=== PATIENT | female | born 1945 | race African-American/Black ===

== ENCOUNTER 2018-12-27 04:45 | Inpatient (IN) | payer BC, MEDICARE ==
[~2018-12-27] VITALS: Ht 163.8 cm; Wt 99.4 kg
[2018-12-27] VITALS (7 sets, daily range): BP systolic 114–166; BP diastolic 58–88
[2018-12-27 05:28] LABS: BASO % 1 % (0-3); EOS # 0.2 x10^3/uL (0.0-0.7); EOS % 3 % (0-3); HEMATOCRIT 39.7 % (36.0-47.0); HEMOGLOBIN 13.4 g/dL (12.0-15.5); LYMPH # 2.2 x10^3/uL (1.0-4.8); LYMPH % 44 % (24-48); MEAN CORPUSCULAR HEMOGLOBIN 30 pg (25-35); MEAN CORPUSCULAR HGB CONC 34 g/dL (31-37); MEAN CORPUSCULAR VOLUME 88 fL (79-100); MONO # 0.4 x10^3/uL (0.0-1.1); MONO % 8 % (0-9); NEUT # 2.2 x10^3/uL (1.8-7.7); NEUT % 44 % (31-73); PLATELET COUNT 227 x10^3/uL (140-400); RED BLOOD COUNT 4.51 x10^6/uL (3.50-5.40); RED CELL DISTRIBUTION WIDTH 13.9 % (11.5-14.5); WHITE BLOOD COUNT 5.1 x10^3/uL (4.0-11.0)
[2018-12-27] MEDS ORDERED: DEXAMETHASONE SOD PHOS 4 MG/ML VIAL IV ONE (05:30)
[2018-12-27 05:45] LABS: CALCIUM 8.7 mg/dL (8.5-10.1); CREATININE 1.1 mg/dL (0.6-1.0); GFR 59.2; POTASSIUM 3.8 mmol/L (3.5-5.1)
--- NOTE | 2018-12-27 05:46 | PHYS DOC ---
Past Medical History Past Medical History: High Cholesterol, Hypertension (DOMO CAMPOS MD) Past Surgical History: No Surgical History (DOMO CAMPOS MD) Alcohol Use: Occasionally Drug Use: None (DOMO CAMPOS MD) Adult General Chief Complaint Chief Complaint: LOWER BACK PAIN OR INJURY HPI HPI 73-year-old female presents to the emergency Department with complaints of back pain, bilateral lower extremity weakness, urinary incontinence. Patient states around 10 AM today she started having some back pain, crampy, muscle spasm. She was seen at [facility] for initial complaints, found to have urinary tract infection. Patient was provided with Macrobid, Tizanidine secondary to the muscle spasm. She states throughout the day pain has progressively gotten worse with radiation down her bilateral lower extremities. She describes numbness and tingling to her lower extremities. She states around 2 AM she noticed that she was incontinent of urine. States her last normal bowel movement was this morning. On exam she describes perineal numbness, states she is unable to feel in that area. Given her symptoms she presents to the emergency department for further evaluation. Patient denies any chest pain, shortness of breath, nausea or vomiting. (DOMO CAMPOS MD) Review of Systems Review of Systems Constitutional: Denies fever or chills [] Eyes: Denies change in visual acuity, redness, or eye pain [] Respiratory: Denies cough or shortness of breath [] Cardiovascular: No additional information not addressed in HPI [] GI: Denies abdominal pain, nausea, vomiting, bloody stools or diarrhea [] : urinary incontinence Musculoskeletal: back pain with radiation down her bilateral lower ext Integument: Denies rash or skin lesions [] Neurologic: weakness to bilateral lower ext, numbness to perineum All other systems were reviewed and found to be within normal limits, except as documented in this note. (DOMO CAMPOS MD) Current Medications Current Medications Current Medications Medications (Trade) Dose Ordered Sig/[place] Start Time Stop Time Status Last Admin Dose Admin Dexamethasone Sodium Phosphate (Decadron) 4 mg 1X ONCE 12/27/18 05:30 12/27/18 05:31 DC 12/27/18 05:42 4 MG Hydromorphone HCl (Dilaudid) 1 mg 1X ONCE 12/27/18 07:30 12/27/18 07:31 DC 12/27/18 07:09 1 MG (ASHLEY SCHMIDT MD) Allergies Allergies Allergies Coded Allergies Type Severity Reaction Last Updated Verified latex Allergy Intermediate 10/31/14 Yes (ASHLEY SCHMIDT MD) Physical Exam Physical Exam Constitutional: Well developed, well nourished, mild distress 2/2 pain HENT: Normocephalic, atraumatic, bilateral external ears normal, oropharynx moist, no oral exudates, nose normal. [] Eyes: PERRLA, EOMI, conjunctiva normal, no discharge. [] Cardiovascular:Heart rate regular rhythm, no murmur [] Lungs & Thorax: Bilateral breath sounds clear to auscultation [] Abdomen: Bowel sounds normal, soft, no tenderness, no masses, no pulsatile masses. [] Skin: Warm, dry, no erythema, no rash. [] Back: lumbosacral spine tenderness midline Extremities: decreased sensation to bilateral lower ext, weakness appreciated 3/5 bilateral, numbness/tingling from buttock down lower ext : decreased rectal tone on exam, minimal resistance if any, perineum exam reveals numbness Neurologic: Alert and oriented X 3, see above[] Psychologic: Affect normal, judgement normal, mood normal. [] (DOMO CAMPOS MD) Current Patient Data Vital Signs Vital Signs Date Time Temp Pulse Resp B/P (MAP) Pulse Ox O2 Delivery O2 Flow Rate FiO2 12/27/18 08:15 79 18 147/82 (103) 99 Room Air 12/27/18 05:23 98.1 98.1 (ASHLEY SCHMIDT MD) Lab Values Laboratory Tests Test 12/27/18 05:20 12/27/18 06:00 White Blood Count 5.1 x10^3/uL (4.0-11.0) Red Blood Count 4.51 x10^6/uL (3.50-5.40) Hemoglobin 13.4 g/dL (12.0-15.5) Hematocrit 39.7 % (36.0-47.0) Mean Corpuscular Volume 88 fL (79-100) Mean Corpuscular Hemoglobin 30 pg (25-35) Mean Corpuscular Hemoglobin Concent 34 g/dL (31-37) Red Cell Distribution Width 13.9 % (11.5-14.5) Platelet Count 227 x10^3/uL (140-400) Neutrophils (%) (Auto) 44 % (31-73) Lymphocytes (%) (Auto) 44 % (24-48) Monocytes (%) (Auto) 8 % (0-9) Eosinophils (%) (Auto) 3 % (0-3) Basophils (%) (Auto) 1 % (0-3) Neutrophils # (Auto) 2.2 x10^3/uL (1.8-7.7) Lymphocytes # (Auto) 2.2 x10^3/uL (1.0-4.8) Monocytes # (Auto) 0.4 x10^3/uL (0.0-1.1) Eosinophils # (Auto) 0.2 x10^3/uL (0.0-0.7) Basophils # (Auto) 0.0 x10^3/uL (0.0-0.2) Sodium Level 142 mmol/L (136-145) Potassium Level 3.8 mmol/L (3.5-5.1) Chloride Level 106 mmol/L (98-107) Carbon Dioxide Level 26 mmol/L (21-32) Anion Gap 10 (6-14) Blood Urea Nitrogen 14 mg/dL (7-20) Creatinine 1.1 mg/dL (0.6-1.0) H Estimated GFR (Cockcroft-Gault) 59.2 BUN/Creatinine Ratio 13 (6-20) Glucose Level 118 mg/dL (70-99) H Calcium Level 8.7 mg/dL (8.5-10.1) Total Bilirubin 0.4 mg/dL (0.2-1.0) Aspartate Amino Transferase (AST) 36 U/L (15-37) Alanine Aminotransferase (ALT) 35 U/L (14-59) Alkaline Phosphatase 80 U/L (46-116) Total Protein 7.4 g/dL (6.4-8.2) Albumin 3.5 g/dL (3.4-5.0) Albumin/Globulin Ratio 0.9 (1.0-1.7) L Urine Collection Type U cath Urine Color Yellow Urine Clarity Clear Urine pH 5.5 Urine Specific [place] 1.010 Urine Protein Negative mg/dL (NEG-TRACE) Urine Glucose (UA) Negative mg/dL (NEG) Urine Ketones (Stick) Negative mg/dL (NEG) Urine Blood Negative (NEG) Urine Nitrite Negative (NEG) Urine Bilirubin Negative (NEG) Urine Urobilinogen Dipstick 0.2 mg/dL (0.2 mg/dL) Urine Leukocyte Esterase Negative (NEG) Urine RBC Occ /HPF (0-2) Urine WBC 0 /HPF (0-4) Urine Squamous Epithelial Cells Few /LPF Urine Renal Epithelial Cells Occ /LPF Urine Bacteria 0 /HPF (0-FEW) Urine Mucus Slight /LPF Laboratory Tests 12/27/18 05:20 Laboratory Tests 12/27/18 05:20 (ASHLEY SCHMIDT MD) Lab Values Laboratory Tests Test 12/27/18 05:20 White Blood Count 5.1 x10^3/uL (4.0-11.0) Red Blood Count 4.51 x10^6/uL (3.50-5.40) Hemoglobin 13.4 g/dL (12.0-15.5) Hematocrit 39.7 % (36.0-47.0) Mean Corpuscular Volume 88 fL (79-100) Mean Corpuscular Hemoglobin 30 pg (25-35) Mean Corpuscular Hemoglobin Concent 34 g/dL (31-37) Red Cell Distribution Width 13.9 % (11.5-14.5) Platelet Count 227 x10^3/uL (140-400) Neutrophils (%) (Auto) 44 % (31-73) Lymphocytes (%) (Auto) 44 % (24-48) Monocytes (%) (Auto) 8 % (0-9) Eosinophils (%) (Auto) 3 % (0-3) Basophils (%) (Auto) 1 % (0-3) Neutrophils # (Auto) 2.2 x10^3/uL (1.8-7.7) Lymphocytes # (Auto) 2.2 x10^3/uL (1.0-4.8) Monocytes # (Auto) 0.4 x10^3/uL (0.0-1.1) Eosinophils # (Auto) 0.2 x10^3/uL (0.0-0.7) Basophils # (Auto) 0.0 x10^3/uL (0.0-0.2) Sodium Level 142 mmol/L (136-145) Potassium Level 3.8 mmol/L (3.5-5.1) Chloride Level 106 mmol/L (98-107) Carbon Dioxide Level 26 mmol/L (21-32) Anion Gap 10 (6-14) Blood Urea Nitrogen 14 mg/dL (7-20) Creatinine 1.1 mg/dL (0.6-1.0) H Estimated GFR (Cockcroft-Gault) 59.2 BUN/Creatinine Ratio 13 (6-20) Glucose Level 118 mg/dL (70-99) H Calcium Level 8.7 mg/dL (8.5-10.1) Total Bilirubin 0.4 mg/dL (0.2-1.0) Aspartate Amino Transferase (AST) 36 U/L (15-37) Alanine Aminotransferase (ALT) 35 U/L (14-59) Alkaline Phosphatase 80 U/L (46-116) Total Protein 7.4 g/dL (6.4-8.2) Albumin 3.5 g/dL (3.4-5.0) Albumin/Globulin Ratio 0.9 (1.0-1.7) L Laboratory Tests 12/27/18 05:20 Laboratory Tests 12/27/18 05:20 (DOMO CAMPOS MD) EKG EKG [] (DOMO CAMPOS MD) Radiology/Procedures Radiology/Procedures [] (DOMO CAMPOS MD) Radiology/Procedures [facility] [address] [place], [place] [id number] IMAGING REPORT Signed PATIENT: KVNG YUNG EACCOUNT: [id number] : 1945 LOCATION: ER AGE: 73 SEX: F EXAM STATUS: REG ER ORD. PHYSICIAN: DOMO CAMPOS MD REASON: concern for cauda equina - decreased rectal tone, perineal numbness- [id number] PROCEDURE: LUMBAR SPINE WO CONTRAST MRI Lumbar Spine without contrast History: Decreased rectal tone, perineal numbness Technique: Multiplanar, multi sequential noncontrast MR imaging was performed of the lumbar spine. Comparison: None Findings: Lumbar vertebral body stature is maintained. There is straightening of the lumbar spine. There is negligible anterior spondylolisthesis L3-4. There is moderate to severe degenerative disc disease at L2-3 and to a somewhat lesser degree at L3-4 and L4-5, minimally L5-S1. There are posterior and anterior annular tears L2-3 through L4-5. There is trace L3-4 endplate edema likely reactive/degenerative in etiology. There is also mild amorphous edema of the right L5 pedicle extending to the facet articular process more likely be reactive/degenerative in etiology. There is T2 hyperintense lesion of the visualized right kidney not fully included, up to about 2.6 cm, statistically more likely a cyst. L1-L2: Neural foramina and spinal canal are adequate. There is mild prominence of posterior epidural fat centrally and mild buckling of the ligamentum flavum. L2-L3: There is prominence of posterior epidural fat centrally and mild facet degenerative change. There is disc osteophyte complex and bulge. There is mild to moderate attenuation of the thecal sac including narrowing the far right lateral recess, more central attenuation of the thecal sac due to epidural lipomatosis posteriorly. There is mild inferior neural foramina compromise by disc osteophyte complex, near undersurface of proximal extraforaminal left L2 nerve root. L3-L4: There is prominence of posterior epidural fat centrally. There is mild buckling of the ligamentum flavum and [id number] facet degenerative change. There is disc osteophyte complex. There is superimposed protrusion eccentric to the left lateral recess about 2 to 3 mm AP. There is overall moderate attenuation of the thecal sac with a greater degree of left lateral recess stenosis, posterior attenuation of the thecal sac by epidural lipomatosis. There is mild to moderate narrowing greater distally of the left neural foramen, shallow protrusion near undersurface exiting left L3 nerve root. Right neural foramen is not significantly narrowed. L4-L5: There is prominence of posterior epidural fat centrally. There is mild facet hypertrophic change and buckling of the ligamentum flavum. There is minimal disc osteophyte complex and bulge. There is fairly severe attenuation of the thecal sac, posterior attenuation of the thecal sac centrally by epidural lipomatosis. There is limited preserved subarachnoid space. There is lateral recess stenosis bilaterally with contact of the descending L5 nerve roots. Neural foramina are not significantly narrowed. L5-S1: Spinal canal is overall adequate. There is mild to moderate right facet degenerative change. Left neural foramen is adequate. There is [id number] narrowing of the right neural foramen. Impression: 1. There is fairly severe attenuation of the thecal sac at L4-5 with limited preserved subarachnoid space, posterior attenuation of the thecal sac more centrally by posterior epidural lipomatosis. There is a lesser degree of moderate spinal stenosis at L3-4, mild attenuation of the thecal sac at L2-3. Posterior epidural lipomatosis also contributes to attenuation of the thecal sac at L2-3 and L3-4. 2. There is multilevel lumbar degenerative disc disease greatest at L2-3 through L4-5, mild spondylosis. 3. There is mild to moderate narrowing of the right L5-S1 and left L3-4 neural foramina, minimal narrowing bilaterally at L2-L3. 4. Not fully evaluated, T2 hyperintense lesion of the right kidney is statistically most likely a cyst. Electronically signed by: Trish Taylor MD (12/27/2018 8:42 AM) [facility] DICTATED and SIGNED BY: TRISH TAYLOR MD DATE: 12/27/18 0842 (ASHLEY SCHMIDT MD) Course & Med Decision Making Course & Med Decision Making Pertinent Labs and Imaging studies reviewed. (See chart for details) []73-year-old female presents to the emergency Department with complaints of back pain, bilateral lower extremity weakness, urinary incontinence. Patient states around 10 AM today she started having some back pain, crampy, muscle spasm. She was seen at [facility] for initial complaints, found to have urinary tract infection. Patient was provided with Macrobid, Tizanidine secondary to the muscle spasm. She states throughout the day pain has progressively gotten worse with radiation down her bilateral lower extremities. She describes numbness and tingling to her lower extremities. She states around 2 AM she noticed that she was incontinent of urine. States her last normal bowel movement was this morning. On exam she describes perineal numbness, states she is unable to feel in that area. Given her symptoms she presents to the emergency department for further evaluation. Patient denies any chest pain, shortness of breath, nausea or vomiting. Labs reviewed. MRI pending - decadron given IV, Dilaudid 0.5mg IV. Discussed case with Dr. Schmidt who will assume care. (DOMO CAMPOS MD) Course & Med Decision Making Evaluation of patient in ER showed 73-year-old male patient with sudden onset of urine and bowel incontinence and urinary retention and numbness and weakness of lower extremities. MRI showed spinal stenosis. On-call neurosurgeon was consulted at [phone] and plan to see patient. Patient requiring admission for further evaluation and treatment. Discussed with Dr. Peña who is in agreement with admission. Discussed findings and plan with patient and family, who acknowledge understanding and agreement. (ASHLEY SCHMIDT MD) Dragon Disclaimer Dragon Disclaimer This electronic medical record was generated, in whole or in part, using a voice recognition dictation system. (DOMO CAMPOS MD) Departure Departure Impression: Primary Impression: Weakness of both lower extremities Additional Impression: Spinal stenosis at L4-L5 level Disposition: ADMITTED INPATIENT Admitting Physician: Sin Peña (accepted admission at 0911) (ASHLEY SCHMIDT MD) Condition: IMPROVED Problem Qualifiers DOMO CAMPOS MD Dec 27, 2018 05:46 ASHLEY SCHMIDT MD Dec 27, 2018 09:06
[2018-12-27 05:51] LABS: ALBUMIN 3.5 g/dL (3.4-5.0); ALBUMIN/GLOBULIN RATIO 0.9 (1.0-1.7); TOTAL BILIRUBIN 0.4 mg/dL (0.2-1.0); TOTAL PROTEIN 7.4 g/dL (6.4-8.2)
[2018-12-27] MEDS ORDERED: HYDROmorphone 2 MG/ML VIAL IV ONE ×2 (06:00→07:30)
[2018-12-27 06:21] LABS: BILIRUBIN,URINE NEGATIVE (NEG); CLARITY,URINE CLEAR; COLOR,URINE YELLOW; NITRITE,URINE NEGATIVE (NEG); PH,URINE 5.5; PROTEIN,URINE NEGATIVE (NEG-TRACE); UROBILINOGEN,URINE 0.2 mg/dL (0.2 mg/dL)
[2018-12-27 06:27] LABS: SQUAMOUS EPITHELIAL CELL,UR FEW /LPF
[2018-12-27 06:30] LABS: BACTERIA,URINE 0 /HPF (0-FEW); RBC,URINE OCC /HPF (0-2); WBC,URINE 0 /HPF (0-4)
--- NOTE | 2018-12-27 08:45 | RAD ---
MRI Lumbar Spine without contrast History: Decreased rectal tone, perineal numbness Technique: Multiplanar, multi sequential noncontrast MR imaging was performed of the lumbar spine. Comparison: None Findings: Lumbar vertebral body stature is maintained. There is straightening of the lumbar spine. There is negligible anterior spondylolisthesis L3-4. There is moderate to severe degenerative disc disease at L2-3 and to a somewhat lesser degree at L3-4 and L4-5, minimally L5-S1. There are posterior and anterior annular tears L2-3 through L4-5. There is trace L3-4 endplate edema likely reactive/degenerative in etiology. There is also mild amorphous edema of the right L5 pedicle extending to the facet articular process more likely be reactive/degenerative in etiology. There is T2 hyperintense lesion of the visualized right kidney not fully included, up to about 2.6 cm, statistically more likely a cyst. L1-L2: Neural foramina and spinal canal are adequate. There is mild prominence of posterior epidural fat centrally and mild buckling of the ligamentum flavum. L2-L3: There is prominence of posterior epidural fat centrally and mild facet degenerative change. There is disc osteophyte complex and bulge. There is mild to moderate attenuation of the thecal sac including narrowing the far right lateral recess, more central attenuation of the thecal sac due to epidural lipomatosis posteriorly. There is mild inferior neural foramina compromise by disc osteophyte complex, near undersurface of proximal extraforaminal left L2 nerve root. L3-L4: There is prominence of posterior epidural fat centrally. There is mild buckling of the ligamentum flavum and gull-dx-[id number] facet degenerative change. There is disc osteophyte complex. There is superimposed protrusion eccentric to the left lateral recess about 2 to 3 mm AP. There is overall moderate attenuation of the thecal sac with a greater degree of left lateral recess stenosis, posterior attenuation of the thecal sac by epidural lipomatosis. There is mild to moderate narrowing greater distally of the left neural foramen, shallow protrusion near undersurface exiting left L3 nerve root. Right neural foramen is not significantly narrowed. L4-L5: There is prominence of posterior epidural fat centrally. There is mild facet hypertrophic change and buckling of the ligamentum flavum. There is minimal disc osteophyte complex and bulge. There is fairly severe attenuation of the thecal sac, posterior attenuation of the thecal sac centrally by epidural lipomatosis. There is limited preserved subarachnoid space. There is lateral recess stenosis bilaterally with contact of the descending L5 nerve roots. Neural foramina are not significantly narrowed. L5-S1: Spinal canal is overall adequate. There is mild to moderate right facet degenerative change. Left neural foramen is adequate. There is yxzm-[id number] narrowing of the right neural foramen. Impression: 1. There is fairly severe attenuation of the thecal sac at L4-5 with limited preserved subarachnoid space, posterior attenuation of the thecal sac more centrally by posterior epidural lipomatosis. There is a lesser degree of moderate spinal stenosis at L3-4, mild attenuation of the thecal sac at L2-3. Posterior epidural lipomatosis also contributes to attenuation of the thecal sac at L2-3 and L3-4. 2. There is multilevel lumbar degenerative disc disease greatest at L2-3 through L4-5, mild spondylosis. 3. There is mild to moderate narrowing of the right L5-S1 and left L3-4 neural foramina, minimal narrowing bilaterally at L2-L3. 4. Not fully evaluated, T2 hyperintense lesion of the right kidney is statistically most likely a cyst. Electronically signed by: Dhaval Bourgeois MD (12/27/2018 8:42 AM) [facility]
[2018-12-27] MEDS ORDERED: MORPHINE SULFATE 4 MG/ML VIAL. IV PRN (09:30)
[2018-12-27] MEDS ORDERED: OLME20TA17 PO (10:57)
[2018-12-27] MEDS ORDERED: TIZA4TAB2 PO (10:57)
[2018-12-27] MEDS ORDERED: AMLO10TA8 PO (10:57)
[2018-12-27] MEDS ORDERED: NITR100C62 PO (10:57)
[2018-12-27] MEDS ORDERED: ACETAMINOPHEN 325 MG TABLET. PO PRN ×2 (11:00→15:15)
[2018-12-27] MEDS ORDERED: MAGNESIUM HYDROXIDE 2,400 MG/30 ML ORAL.SUSP. PO PRN ×2 (11:00→15:15)
[2018-12-27] MEDS ORDERED: MORPHINE SULFATE 2 MG/ML VIAL. IV PRN ×2 (11:00→12:30)
[2018-12-27] MEDS ORDERED: HYDROcodone/APAP 5/325MG 1 TAB TABLET PO PRN (11:00)
--- NOTE | 2018-12-27 11:15 | PDOC ---
Provider Note Provider Note history and physical dictated # [id number] RIVKA PFEIFFER MD Dec 27, 2018 11:15
[2018-12-27] MEDS: LOSARTAN POTASSIUM 50 MG TABLET. PO SCH (12:00)
[2018-12-27] MEDS: amLODIPine BESYLATE 10 MG TABLET PO SCH (12:00)
[2018-12-27] MEDS ORDERED: IV RINGERS,LACTATED 1000ML 1,000 ML IV SCH (12:26)
[2018-12-27] MEDS ORDERED: ONDANSETRON PF 4 MG/2 ML VIAL. IV PRN (12:30)
[2018-12-27] MEDS ORDERED: PROCHLORPERAZINE 10 MG/2 ML VIAL. IV PRN (12:30)
[2018-12-27] MEDS ORDERED: fentaNYL PF VIAL 100 MCG/2 ML VIAL IV PRN ×2 (12:30)
[2018-12-27] MEDS ORDERED: HYDROmorphone 2 MG/ML VIAL IV PRN (12:30)
[2018-12-27] MEDS ORDERED: ROCURONIUM 50 MG/5 ML VIAL. ONE (12:34)
[2018-12-27] MEDS ORDERED: LIDOCAINE 2% PF 5 ML VIAL. ONE (12:34)
[2018-12-27] MEDS ORDERED: DEXAMETHASONE SOD PHOS 20 MG/5 ML VIAL. ONE (12:34)
[2018-12-27] MEDS ORDERED: ONDANSETRON PF 4 MG/2 ML VIAL. ONE (12:34)
[2018-12-27] MEDS ORDERED: PROPOFOL 20 ML IV ONE (12:34)
[2018-12-27] MEDS ORDERED: PROPOFOL 50 ML IV ONE ×2 (12:34→14:56)
[2018-12-27] MEDS ORDERED: REMIFENTANIL 2 MG VIAL. IV ONE (12:35)
--- NOTE | 2018-12-27 12:38 | RAD ---
CHEST AP ONLY History: Hypertension, preop Comparison: None. Findings: Single view of the chest is submitted. There is somewhat tortuous thoracic aorta. There is no lobar infiltrate, pleural fluid, pneumothorax. Cardiac silhouette is within normal limits. Impression: 1. There is no radiographic evidence of acute cardiopulmonary disease. Electronically signed by: Dhaval Bourgeois MD (12/27/2018 12:35 PM) [facility]
[2018-12-27] MEDS ORDERED: KETOROLAC 60 MG/2 ML VIAL. ONE (12:46)
[2018-12-27] MEDS ORDERED: THROMBIN TOPICAL 20,000 UNIT SPRAY.SYRN KIT TP ONE (12:46)
[2018-12-27] MEDS ORDERED: GELATIN SPONGE SIZE 100. ONE (12:46)
[2018-12-27] MEDS ORDERED: PHENYLEPHRINE 10 MG/ML VIAL. ONE (12:46)
[2018-12-27] MEDS ORDERED: BACITRACIN 50,000 UNIT in IV NORMAL SALINE 1000ML BAG 1,000 ML IRR ONE (13:00)
[2018-12-27] MEDS ORDERED: BUPIVACAINE-EPI 0.5%-1:200000 MPF 30 ML VIAL. INJ ONE (13:00)
--- NOTE | 2018-12-27 13:18 | EKG ---
[facility] [address] [place] [id number] Test Date: 2018-12-27 Test Time: 14:11:54 Pat Name: KVNG YUNG Department: Room: 432 Gender: F Elementary Librarian: : 1945 Requested By: RIVKA PFEIFFER Order Number: [id number] Reading MD: Measurements Intervals [place] Rate: 90 P: 45 AR: 176 QRS: 25 QRSD: 86 T: 39 QT: 378 QTc: 467 Interpretive Statements SINUS RHYTHM NORMAL ECG RI6.02 Compared to ECG 10/29/2014 15:48:26 No significant changes
[2018-12-27] MEDS ORDERED: GLYCOPYRROLATE 1 MG/5 ML VIAL. ONE (13:58)
--- NOTE | 2018-12-27 14:25 | HP ---
ADMIT DATE: 12/27/2018 LOCATION: She is in room 432. HISTORY OF PRESENT ILLNESS: The patient is a 73-year-old -Citizen Of The [place] female with a history of hypertension, who noted the onset of some pain in both of her legs around 10:00 a.m. yesterday. The patient took [address], went to the [employer] for shopping. She noted later in the day that she had continued pain down her legs and some numbness in her legs and also eventually had some perineal numbness and also had numbness in her bilateral lower extremities in addition to continued pain down the back of her legs to her feet. In addition, last night she had some difficulty urinating and could not push the urine out. She did have a stream of urine, apparently by gravity it came down. She sought help earlier yesterday at [facility] Emergency Room, where they thought she had a urinary tract infection, gave her an oral antibiotics and sent her home with tizanidine to be taken 2 mg p.r.n.; however, her symptoms worsened last night as mentioned and she [facility], where she underwent an MRI of the lumbar spine, which showed a fairly severe L4, L5 attenuation of the thecal sac consistent with lumbar spinal stenosis. She also had moderate spinal stenosis at L3-L4 and mild at L2-L3. She had multilevel lumbar degenerative disk disease at L2 through L5. The Emergency Room doctor called the neurosurgeon Dr. Mcdonnell, who recommended her to be admitted to the hospital. A Fang catheter placed in the Emergency Room and the patient tells me she had 1100 mL of urine in the bladder. Urinalysis showed no pyuria and she had clear urine. She received IV Dilaudid and IV morphine in the Emergency Room for pain relief and subsequently admitted to the hospital for further evaluation of her symptoms. She denies any back pain. ALLERGIES AND INTOLERANCES: LATEX. MEDICATIONS: Prior to admission, Benicar 20 mg every day, amlodipine 10 mg every day. PAST MEDICAL HISTORY: She had a cholecystectomy, has hypertension. Denies any history of diabetes mellitus, myocardial infarction, cerebrovascular accident, congestive heart failure, hyperlipidemia or diabetes mellitus. SOCIAL HISTORY: She drinks alcohol occasionally. Does not smoke cigarettes. 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 FAMILY HISTORY: Noncontributory. REVIEW OF SYSTEMS: GENERAL: She denies any fever, chills or sweats in the last 3 days. CARDIOVASCULAR: No chest pain. PULMONARY: No cough or shortness of breath. GASTROINTESTINAL: She had a bowel movement yesterday and said her symptoms actually began yesterday at 10:00 in the morning. After she had a bowel movement, she noted the onset of pain down her legs. NEUROLOGIC: As stated above. SKIN: No rashes. The rest of systems reviewed are negative except as stated in history of present illness. PHYSICAL EXAMINATION: VITAL SIGNS: Temperature is 98.1 degrees, apical pulse is 82, respiratory rate 16, blood pressure of 138/78, oxygen saturation 98% on room air. HEENT: Eyes: Gaze is conjugate. Mouth: Tongue is midline. NECK: There is no cervical lymphadenopathy or thyroid enlargement. HEART: Reveals an S1, S2. There is no S3 or murmur. LUNGS: Clear. ABDOMEN: Soft, obese with no hepatosplenomegaly, masses or tenderness. BACK: Reveals no tenderness. EXTREMITIES: Lower extremities, dorsalis pedis pulses are 2+. NEUROLOGIC: She has no focal weakness in the legs. Able to dorsi and plantarflex both feet, bend her knees and raise her legs up in the air. Again, showed no facial weakness. 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 She notes on examination that she has some decreased numbness in both lower extremities during my examination. GENITOURINARY: She had a Fang catheter in with clear yellow urine noted. LABORATORY DATA: Review of her test results, the MRI of the lumbar spine is as stated above. White count was 5.1, hemoglobin 13.4, platelet count 227,000, 44 polys and 34 lymphocytes. Sodium 142, potassium 3.8, chloride 106, total CO2 of 26, BUN 14, creatinine 1.1, blood sugar 118. Liver function tests were normal. Urinalysis showed an occasional red cell and no white cells. ASSESSMENT: 1. Lumbar spinal stenosis, severe at L4-L5. 2. Urine retention. 3. Perineal numbness. 4. Bilateral sciatica. 5. Numbness in her legs. 6. Hypertension. PLAN: At this time is to consult Dr. Mcdonnell. Order SCDs for deep vein thrombosis prophylaxis. We will substitute the losartan for the Benicar, as Benicar is not on formulary and resume her blood pressure medications if she did not receive at this morning or at home, the nurse will administer blood pressure medicines today. In addition, we will consult Dr. Santiago, the urologist regarding the urinary retention. Certainly, this could be secondary to her neurogenic basis given her spinal stenosis and radicular pain. We will get an EKG and a chest x-ray on her. We will also order the IV morphine or hydrocodone p.r.n. for pain control. RIVKA PFEIFFER MD DR: BARBIE/patricio JOB#: [id number] / [id number]
[2018-12-27] MEDS ORDERED: ceFAZolin SODIUM 1 GM VIAL ONE (14:59)
[2018-12-27] MEDS ORDERED: diphenhydrAMINE HCL 25 MG CAPSULE PO PRN (15:15)
[2018-12-27] MEDS ORDERED: 0.9 % SODIUM CHLORIDE 10 ML DISP.SYRIN. IV PRN (15:15)
[2018-12-27] MEDS ORDERED: NALOXONE 0.4 MG/ML VIAL. IV PRN (15:15)
[2018-12-27] MEDS ORDERED: MAG HYDROX/ALUMINUM HYD/SIMETH 30 ML ORAL.SUSP PO PRN (15:15)
[2018-12-27] MEDS ORDERED: CALCIUM CARBONATE 500 MG TAB.CHEW PO PRN (15:15)
[2018-12-27] MEDS ORDERED: DESFLURANE > 120 MINUTES IH ONE (16:06)
[2018-12-27] MEDS ORDERED: NEOSTIGMINE METHYLSULFATE 5 MG/5 ML SYRINGE. ONE (16:53)
[2018-12-27] MEDS ORDERED: fentaNYL PF VIAL 100 MCG/2 ML VIAL ONE (17:46)
[2018-12-27] MEDS: POTASSIUM CL 20MEQ D5-0.45NACL 1,000 ML IV SCH (19:00)
--- NOTE | 2018-12-27 19:50 | OP ---
DATE OF SURGERY: 12/27/2018 PREOPERATIVE DIAGNOSES: Lumbar spinal stenosis and cauda equina syndrome, L4-L5 POSTOPERATIVE DIAGNOSES: Lumbar spinal stenosis and cauda equina syndrome, L4-L5. OPERATION PERFORMED: Lumbar laminectomy, lumbar microdiskectomy L4-L5. This is an emergency operation which was done with fluoroscopy, microscopic dissection. ACCOUNT DEVELOPMENT EXECUTIVE: GENIE Burks assisted with the surgery. She assisted with the exposure, the laminectomy, the microdiskectomy as well as the closure. OPERATIVE INDICATIONS: The patient is a pleasant 73-year-old who developed first problems with back pain and pain which radiated into her inguinal region and into her lower extremities, especially the buttock. This progressed and she developed an episode of urinary retention, was seen in an urgent care and that problem resolved. She was given muscle relaxants and sent home and during the night, she developed further problems with urinary retention. She came in to the Emergency Room in the services clerk and was evaluated. MRI scan was done and she was admitted. When I saw the patient in the morning, she had numbness in both of her posterior thighs, calves and feet diffusely. She felt that her strength was normal. She had a Fang catheter in place. The pain was not a significant problem at this point, the pain had improved and the numbness had increased. I reviewed her imaging studies and I felt that she developed cauda equina syndrome and I took her emergently to surgery. DESCRIPTION OF PROCEDURE: Following general endotracheal anesthesia, the patient was positioned prone on the Dirk table. Lumbar region prepped and draped in standard fashion. BRUCE hose and AV impulse boots were applied for DVT prophylaxis. A microscope was draped. Fluoroscopy was brought into the field. Ancef was given prior to the operation. Using fluoroscopic guidance, incision was made extending from superior L4 to inferior L5, I dissected down through skin and subcutaneous tissue, reflected the paraspinal muscles and placed a McCullouch retractor. I brought in the microscope and using the high speed air drill with a conical bur, I drilled away the spinous processes of L4-L5 and then using a more matchstick type bur drilled further the lamina bilaterally exposing the ligamentum flavum, which I trimmed away very gently exposing the dura beneath. There was epidural lipomatosis and I removed this material dorsally and posterolaterally. I then worked and assured myself performing a partial foraminotomy superiorly and inferiorly. The region was very well decompressed. I retracted the dura medially from the left side, there was a large bulging disk and I incised the ligament and annulus and I performed diskectomy with pituitary rongeurs and as I worked, the area became further decompressed. I went to the right side, but at this point, I did incise the ligament and annulus and performed diskectomy, but the majority of the pressure I suspect had been released from the left. At this point, I explored carefully, I felt that I had an excellent decompression. I irrigated copiously with antibiotic solution. X-ray had confirmed my position earlier. I removed the retractor, obtained excellent hemostasis in the muscle and I closed the wound in layers with absorbable suture. Skin was closed with 4-0 subcuticular stitch. I felt the surgery went very well. Prior to surgery, the patient understood the problem she was encountering. She understood that the surgery was done in an attempt to restore her bowel and bladder function, but that there were no guarantees. She understood the emergency nature of the situation and she strongly wished to go ahead with surgery. Again, I felt the surgery went very well. KRISH TORRES MD DR: DAMIR/patricio JOB#: [id number] / [id number]
[2018-12-27] MEDS: DOCUSATE SODIUM 100 MG CAPSULE. PO SCH (21:00)
[2018-12-27] MEDS: fentaNYL PF VIAL 100 MCG/2 ML VIAL IV PRN (22:57)
--- NOTE | 2018-12-27 23:16 | CONS ---
DATE OF CONSULTATION: 12/27/2018 REASON FOR CONSULTATION: Cauda equina syndrome. HISTORY OF PRESENT ILLNESS: The patient is a pleasant 73-year-old woman who yesterday developed problems with back pain and pain which radiated into both of her lower extremities. She then noticed later some difficulty with urination. She was seen yesterday in the late afternoon or early evening an urgent care and was able to void. She was given muscle relaxers and she said that during the night, she had increasing difficulty with the use of her bladder and noted the development of numbness in her buttocks and posterior thighs. She was admitted for further evaluation. She says that the pain she was experiencing has improved, but the numbness in her feet has worsened. She did have a normal bowel movement yesterday morning and she does not describe any bowel difficulties. PAST MEDICAL HISTORY: She reports no significant medical problems. She does have a history of hypertension, hypercholesterolemia. PAST SURGICAL HISTORY: She has no past surgical history. ALLERGIES: There are no allergies to medications. She does allergy to LATEX. REVIEW OF SYSTEMS: Ten points was performed and other than outlined above was negative. PHYSICAL EXAMINATION: GENERAL: She is pleasant, alert and cooperative. NEUROLOGIC: Her strength was 5/5 in upper and lower extremities bilaterally. On sensory examination, there was decrease in light touch involving the buttocks, posterior thigh and perineal region and extending in the posterior aspect of the thighs and involving her legs and feet bilaterally. Reflexes were 1+ at the knees and absent at the ankles. Negative straight leg raising. There was tenderness in the lower lumbar spine with palpation. IMAGING: I reviewed an MRI of the lumbar spine on that study. There is moderate stenosis at L3-L4, but not critical. However, at L4-L5, she has a fairly significant stenosis with posterior disk bulging at this level. PLAN: I believe the problems at L4-L5 are responsible for cauda equina syndrome. At this point, I feel she should be taken for emergency surgery and to discuss the surgery and risks with her in detail. We are going to move ahead with this. I appreciate you asking me to see her. KRISH TORRES MD DR: DAMIR/patricio JOB#: [id number] / [id number]
[2018-12-28 02:56] VITALS: BP 99/54
[2018-12-28] MEDS: fentaNYL PF VIAL 100 MCG/2 ML VIAL IV PRN ×2 (03:02→05:24)
[2018-12-28] MEDS: POTASSIUM CL 20MEQ D5-0.45NACL 1,000 ML IV SCH (06:25)
[2018-12-28 07:00] VITALS: BP 116/56
[2018-12-28] MEDS: LOSARTAN POTASSIUM 50 MG TABLET. PO SCH (09:00)
--- NOTE | 2018-12-28 09:04 | PDOC2 ---
UROLOGY CONSULT Date of Consult Date of Consult DATE: 12/28/18 TIME: 09:03 Identification/Chief Complaint Chief Complaint urinary retention Source Source: Chart review, Patient History of Present Illness Reason for Visit: 73yo female with PMH of HTN presented to ER with worsening lower extremity numbness and difficulty urinating for 2 days. Miranda was placed in the ER with output of 1100mL. Emergency surgery for cauda equina syndrome was done 12/27/18. Prior to this episode, she never had difficulty urinating or incontinence. UA on 12/27 was normal. Today she still feels LE numbness and tingling. Up walking with PT today. Past Medical History Cardiovascular: HTN Past Surgical History Past Surgical History: Cholecystectomy Family History Family History: Family History Unknown Social History No ALCOHOL: rare Drugs: None Current Medications Current Medications Current Medications Acetaminophen (Tylenol) 650 mg PRN Q6HRS PRN PO MILD PAIN / TEMP; Start 12/27/18 at 11:00 Acetaminophen (Tylenol) 650 mg PRN Q6HRS PRN PO MILD PAIN / TEMP; Start 12/27/18 at 15:15; Status UNV Acetaminophen/ Hydrocodone Bitart (Lortab 10/325) 1 tab PRN Q4HRS PRN PO SEVERE PAIN; Start 12/27/18 at 11:00 Acetaminophen/ Hydrocodone Bitart (Lortab 5/325) 1 tab PRN Q4HRS PRN PO MODERATE PAIN; Start 12/27/18 at 11:00 Al Hydroxide/Mg Hydroxide (Mylanta Plus Xs) 30 ml PRN Q3HRS PRN PO HEARTBURN / GAS; Start 12/27/18 at 15:15 Amlodipine Besylate (Norvasc) 10 mg DAILY PO ; Start 12/27/18 at 12:00 Bacitracin 85108 unit/Sodium Chloride 1,000 ml @ 1,000 mls/hr 1X ONCE IRR Last administered on 12/27/18at 15:54; Start 12/27/18 at 13:00; Stop 12/27/18 at 13:59; Status DC Bupivacaine HCl/ Epinephrine Bitart (Sensorcain-Epi 0.5%-1:630650 Mpf) 30 ml 1X ONCE INJ Last administered on 12/27/18at 18:09; Start 12/27/18 at 13:00; Stop 12/27/18 at 13:01; Status DC Calcium Carbonate/ Glycine (Tums) 500 mg PRN Q3HRS PRN PO INDIGESTION; Start 12/27/18 at 15:15 Cefazolin Sodium (Ancef) 1 gm STK-MED ONCE .ROUTE ; Start 12/27/18 at 14:59; Stop 12/27/18 at 15:00; Status DC Cefazolin Sodium/ Dextrose 50 ml @ 100 mls/hr 1X ONCE IV Last administered on 12/27/18at 14:53; Start 12/27/18 at 13:30; Stop 12/27/18 at 13:59; Status DC Desflurane (Suprane) 90 ml STK-MED ONCE IH ; Start 12/27/18 at 16:06; Stop 12/27/18 at 16:07; Status DC Dexamethasone Sodium Phosphate (Decadron) 20 mg STK-MED ONCE .ROUTE ; Start 12/27/18 at 12:34; Stop 12/27/18 at 12:35; Status DC Diphenhydramine HCl (Benadryl) 25 mg PRN Q6HRS PRN PO ITCHING; Start 12/27/18 at 15:15 Docusate Sodium (Colace) 100 mg BID PO ; Start 12/27/18 at 21:00 Fentanyl Citrate (Fentanyl 2ml Vial) 25 mcg PRN Q5MIN PRN IV MILD PAIN 1-3 Last administered on 12/27/18at 17:56; Start 12/27/18 at 12:30; Stop 12/28/18 at 00:09; Status DC Fentanyl Citrate (Fentanyl 2ml Vial) 50 mcg PRN Q2HR PRN IV SEVERE PAIN Last administered on 12/28/18at 05:24; Start 12/27/18 at 15:15 Fentanyl Citrate (Fentanyl 2ml Vial) 50 mcg PRN Q5MIN PRN IV MODERATE TO SEVERE PAIN; Start 12/27/18 at 12:30; Stop 12/28/18 at 00:09; Status DC Fentanyl Citrate (Fentanyl 2ml Vial) 100 mcg STK-MED ONCE .ROUTE ; Start 12/27/18 at 17:46; Stop 12/27/18 at 17:47; Status DC Gelatin (Gelfoam Size 100) 1 each STK-MED ONCE .ROUTE Last administered on 12/27/18at 15:52; Start 12/27/18 at 12:46; Stop 12/27/18 at 12:47; Status DC Glycopyrrolate (Robinul) 1 mg STK-MED ONCE .ROUTE ; Start 12/27/18 at 13:58; Stop 12/27/18 at 13:58; Status DC Hydromorphone HCl (Dilaudid) 0.5 mg PRN Q10MIN PRN IV SEV PAIN, Second choice; Start 12/27/18 at 12:30; Stop 12/28/18 at 12:29 Ketorolac Tromethamine (Toradol Im) 60 mg STK-MED ONCE .ROUTE Last administered on 12/27/18at 15:52; Start 12/27/18 at 12:46; Stop 12/27/18 at 12:47; Status DC Lidocaine HCl (Lidocaine Pf 2% Vial) 5 ml STK-MED ONCE .ROUTE ; Start 12/27/18 at 12:34; Stop 12/27/18 at 12:35; Status DC Losartan Potassium (Cozaar) 50 mg DAILY PO ; Start 12/27/18 at 12:00 Magnesium Hydroxide (Milk Of Magnesia) 2,400 mg PRN DAILY PRN PO CONSTIPATION; Start 12/27/18 at 11:00 Magnesium Hydroxide (Milk Of Magnesia) 2,400 mg PRN Q12HR PRN PO CONSTIPATION; Start 12/27/18 at 15:15; Status UNV Morphine Sulfate (Morphine Sulfate) 1 mg PRN Q10MIN PRN IV SEVERE PAIN 7-10; Start 12/27/18 at 12:30; Stop 12/28/18 at 00:09; Status DC Morphine Sulfate (Morphine Sulfate) 2 mg PRN Q4HRS PRN IV MILD-MOD PAIN Last administered on 12/27/18at 19:59; Start 12/27/18 at 11:00 Morphine Sulfate (Morphine Sulfate) 4 mg PRN Q2HR PRN IV PAIN Last administered on 12/27/18at 10:18; Start 12/27/18 at 09:30; Stop 12/27/18 at 10:18; Status DC Naloxone HCl (Narcan) 0.1 mg PRN Q2MIN PRN IV ADMIN; Start 12/27/18 at 15:15 Neostigmine Methylsulfate (Neostigmine Methylsulfate) 5 mg STK-MED ONCE .ROUTE ; Start 12/27/18 at 16:53; Stop 12/27/18 at 16:53; Status DC Ondansetron HCl (Zofran) 4 mg PRN Q6HRS PRN IV NAUSEA/VOMITING; Start 12/27/18 at 12:30; Stop 12/28/18 at 12:29 Ondansetron HCl (Zofran) 4 mg STK-MED ONCE .ROUTE ; Start 12/27/18 at 12:34; Stop 12/27/18 at 12:35; Status DC Phenylephrine HCl (Vin-Synephrine Inj) 10 mg STK-MED ONCE .ROUTE ; Start 12/27/18 at 12:46; Stop 12/27/18 at 12:46; Status DC Potassium Chloride/Dextrose/ Sod Cl 1,000 ml @ 75 mls/hr [id number] IV Last administered on 12/28/18at 06:25; Start 12/27/18 at 16:00 Prochlorperazine Edisylate (Compazine) 5 mg PACU PRN PRN IV NAUSEA, MRX1; Start 12/27/18 at 12:30; Stop 12/28/18 at 12:29 Propofol 20 ml @ As Directed STK-MED ONCE IV ; Start 12/27/18 at 12:34; Stop 12/27/18 at 12:35; Status DC Propofol 50 ml @ As Directed STK-MED ONCE IV ; Start 12/27/18 at 12:34; Stop 12/27/18 at 12:35; Status DC Propofol 50 ml @ As Directed STK-MED ONCE IV ; Start 12/27/18 at 14:56; Stop 12/27/18 at 14:56; Status DC Remifentanil HCl (Ultiva) 2 mg STK-MED ONCE IV ; Start 12/27/18 at 12:35; Stop 12/27/18 at 12:35; Status DC Ringer's Solution 1,000 ml @ 30 mls/hr Q24H IV ; Start 12/27/18 at 12:26; Stop 12/28/18 at 00:09; Status DC Rocuronium [place] (Zemuron) 50 mg STK-MED ONCE .ROUTE ; Start 12/27/18 at 12:34; Stop 12/27/18 at 12:35; Status DC Sodium Chloride (Normal Saline Flush) 3 ml QSHIFT PRN IV AFTER MEDS AND BLOOD DRAWS; Start 12/27/18 at 15:15 Thrombin 20,000 unit STK-MED ONCE TP Last administered on 12/27/18at 15:52; Start 12/27/18 at 12:46; Stop 12/27/18 at 12:47; Status DC Allergies Allergies: Coded Allergies: latex (Verified Allergy, Intermediate, 10/31/14) ROS Review Of Systems: CONSTITUTIONAL: No fever or chills EYES: No recent changes SKIN: No rash or itching CARDIOVASCULAR: No chest pain, syncope, palpitations, or edema RESPIRATORY: No SOB or cough GASTROINTESTINAL: No nausea, vomiting or abdominal pain NEUROLOGICAL: No headaches ENDOCRINE: No cold or heat intolerance GENITOURINARY: as in HPI MUSCULOSKELETAL: No back pain or joint pain LYMPHATICS: No enlarged lymph nodes PSYCHIATRIC: No anxiety or depression Physical Exam Physical Exam: General: Pleasant, no acute distress, well groomed Eyes: conjunctiva anicteric, eyes full range of motion ENT: moist oral mucosa, normal dentition Neck: Trachea midline, no masses Respiratory: unlabored breathing, not using accessory muscles Cardiovascular: Regular rate and rhythm, no peripheral edema Abdomen: nontender, nondistended, no hepatosplenomegaly, no masses : miranda catheter in place draining clear yellow urine Skin: no rashes or skin lesions on visualized skin Psych: normal mood, affect. Alert and oriented x 3. Vitals VITALS Vital Signs Date Time Temp Pulse Resp B/P (MAP) Pulse Ox O2 Delivery O2 Flow Rate FiO2 12/28/18 07:00 97.9 78 18 116/56 (76) 95 Room Air 97.9 12/27/18 17:56 8.0 Labs Labs Laboratory Tests Test 12/27/18 05:20 12/27/18 06:00 White Blood Count 5.1 x10^3/uL (4.0-11.0) Red Blood Count 4.51 x10^6/uL (3.50-5.40) Hemoglobin 13.4 g/dL (12.0-15.5) Hematocrit 39.7 % (36.0-47.0) Mean Corpuscular Volume 88 fL (79-100) Mean Corpuscular Hemoglobin 30 pg (25-35) Mean Corpuscular Hemoglobin Concent 34 g/dL (31-37) Red Cell Distribution Width 13.9 % (11.5-14.5) Platelet Count 227 x10^3/uL (140-400) Neutrophils (%) (Auto) 44 % (31-73) Lymphocytes (%) (Auto) 44 % (24-48) Monocytes (%) (Auto) 8 % (0-9) Eosinophils (%) (Auto) 3 % (0-3) Basophils (%) (Auto) 1 % (0-3) Neutrophils # (Auto) 2.2 x10^3/uL (1.8-7.7) Lymphocytes # (Auto) 2.2 x10^3/uL (1.0-4.8) Monocytes # (Auto) 0.4 x10^3/uL (0.0-1.1) Eosinophils # (Auto) 0.2 x10^3/uL (0.0-0.7) Basophils # (Auto) 0.0 x10^3/uL (0.0-0.2) Sodium Level 142 mmol/L (136-145) Potassium Level 3.8 mmol/L (3.5-5.1) Chloride Level 106 mmol/L (98-107) Carbon Dioxide Level 26 mmol/L (21-32) Anion Gap 10 (6-14) Blood Urea Nitrogen 14 mg/dL (7-20) Creatinine 1.1 mg/dL (0.6-1.0) Estimated GFR (Cockcroft-Gault) 59.2 BUN/Creatinine Ratio 13 (6-20) Glucose Level 118 mg/dL (70-99) Calcium Level 8.7 mg/dL (8.5-10.1) Total Bilirubin 0.4 mg/dL (0.2-1.0) Aspartate Amino Transf (AST/SGOT) 36 U/L (15-37) Alanine Aminotransferase (ALT/SGPT) 35 U/L (14-59) Alkaline Phosphatase 80 U/L (46-116) Total Protein 7.4 g/dL (6.4-8.2) Albumin 3.5 g/dL (3.4-5.0) Albumin/Globulin Ratio 0.9 (1.0-1.7) Urine Collection Type U cath Urine Color Yellow Urine Clarity Clear Urine pH 5.5 Urine Specific [place] 1.010 Urine Protein Negative mg/dL (NEG-TRACE) Urine Glucose (UA) Negative mg/dL (NEG) Urine Ketones (Stick) Negative mg/dL (NEG) Urine Blood Negative (NEG) Urine Nitrite Negative (NEG) Urine Bilirubin Negative (NEG) Urine Urobilinogen Dipstick 0.2 mg/dL (0.2 mg/dL) Urine Leukocyte Esterase Negative (NEG) Urine RBC Occ /HPF (0-2) Urine WBC 0 /HPF (0-4) Urine Squamous Epithelial Cells Few /LPF Urine Renal Epithelial Cells Occ /LPF Urine Bacteria 0 /HPF (0-FEW) Urine Mucus Slight /LPF Assessment/Plan Assessment/Plan Urinary retention Likely secondary to cauda equina syndrome UA normal Some continued LE paresthesias Continue miranda, recommend VT before discharge Dr. Cisneros to round on patient LIVIA VALDIVIA Dec 28, 2018 09:04
[2018-12-28] MEDS: DOCUSATE SODIUM 100 MG CAPSULE. PO SCH ×2 (09:36→20:48)
[2018-12-28] MEDS: amLODIPine BESYLATE 10 MG TABLET PO SCH (09:37)
[2018-12-28] MEDS: HYDROcodone/APAP 10/325 1 TAB TABLET PO PRN ×3 (09:48→20:48)
--- NOTE | 2018-12-28 10:34 | NUR ---
Pt would benefit from OT assessment to address limitations in ADLs. Please write OT eval and treat orders if you agree. Addendum: 12/28/18 at 1035 by JACQUELINE LAFLEUR PT Amended: Links added.
--- NOTE | 2018-12-28 10:36 | PDOC ---
PROGRESS NOTES Subjective Subjective had a L4-5 lumbar laminectomy and lumbar discectomy yesterday. complains of continued numbness in both legs without weakness. having difficulty with walking. says she cant feel her legs moving when she walks. still has miranda in place seen by urology. Objective Objective Vital Signs Date Time Temp Pulse Resp B/P (MAP) Pulse Ox O2 Delivery O2 Flow Rate FiO2 12/28/18 09:48 Room Air 12/28/18 09:38 78 116/56 12/28/18 07:00 97.9 18 95 97.9 12/27/18 17:56 8.0 l Intake and Output 12/28/18 06:59 Intake Total 940 ml Output Total 1350 ml Balance -410 ml Intake Oral 240 ml IV Total 700 ml Output Urine Total 1300 ml Estimated Blood Loss 50 ml Physical Exam Abdomen: Soft Heart: Regular rate, Normal S1, Normal S2 Extremities: No edema General: Alert HEENT: Atraumatic Lungs: Clear to auscultation Neuro: Normal speech, Other (moves both legs symmetrically. ) Psych/Mental Status: Mental status NL Skin: No breakdown, Other (dressing lower back) Assessment Assessment Problems1. Lumbar spinal stenosis, severe at L4-L5. lumbar laminectony with L4- 4 microdiscectomy 2. Urine retention. due to cauda equina syndrome, miranda in place 3. Perineal numbness. 4. 5. Numbness in her legs. 6. Hypertension. bp on low side of normal Medical Problems: (1) Back pain Status: Acute (2) Bilateral sciatica Status: Chronic (3) Hypertension Status: Chronic (4) Spinal stenosis at L4-L5 level Status: Acute (5) Urinary incontinence Status: Acute (6) Weakness of both lower extremities Status: Acute Plan Plan of Care PT analgesics prn decrease amlodipine and continue losartan MARH screen Comment Review of Relevant I have reviewed the following items magno (where applicable) has been applied. Labs Laboratory Tests Test 12/27/18 05:20 12/27/18 06:00 White Blood Count 5.1 x10^3/uL (4.0-11.0) Red Blood Count 4.51 x10^6/uL (3.50-5.40) Hemoglobin 13.4 g/dL (12.0-15.5) Hematocrit 39.7 % (36.0-47.0) Mean Corpuscular Volume 88 fL (79-100) Mean Corpuscular Hemoglobin 30 pg (25-35) Mean Corpuscular Hemoglobin Concent 34 g/dL (31-37) Red Cell Distribution Width 13.9 % (11.5-14.5) Platelet Count 227 x10^3/uL (140-400) Neutrophils (%) (Auto) 44 % (31-73) Lymphocytes (%) (Auto) 44 % (24-48) Monocytes (%) (Auto) 8 % (0-9) Eosinophils (%) (Auto) 3 % (0-3) Basophils (%) (Auto) 1 % (0-3) Neutrophils # (Auto) 2.2 x10^3/uL (1.8-7.7) Lymphocytes # (Auto) 2.2 x10^3/uL (1.0-4.8) Monocytes # (Auto) 0.4 x10^3/uL (0.0-1.1) Eosinophils # (Auto) 0.2 x10^3/uL (0.0-0.7) Basophils # (Auto) 0.0 x10^3/uL (0.0-0.2) Sodium Level 142 mmol/L (136-145) Potassium Level 3.8 mmol/L (3.5-5.1) Chloride Level 106 mmol/L (98-107) Carbon Dioxide Level 26 mmol/L (21-32) Anion Gap 10 (6-14) Blood Urea Nitrogen 14 mg/dL (7-20) Creatinine 1.1 mg/dL (0.6-1.0) Estimated GFR (Cockcroft-Gault) 59.2 BUN/Creatinine Ratio 13 (6-20) Glucose Level 118 mg/dL (70-99) Calcium Level 8.7 mg/dL (8.5-10.1) Total Bilirubin 0.4 mg/dL (0.2-1.0) Aspartate Amino Transf (AST/SGOT) 36 U/L (15-37) Alanine Aminotransferase (ALT/SGPT) 35 U/L (14-59) Alkaline Phosphatase 80 U/L (46-116) Total Protein 7.4 g/dL (6.4-8.2) Albumin 3.5 g/dL (3.4-5.0) Albumin/Globulin Ratio 0.9 (1.0-1.7) Urine Collection Type U cath Urine Color Yellow Urine Clarity Clear Urine pH 5.5 Urine Specific [place] 1.010 Urine Protein Negative mg/dL (NEG-TRACE) Urine Glucose (UA) Negative mg/dL (NEG) Urine Ketones (Stick) Negative mg/dL (NEG) Urine Blood Negative (NEG) Urine Nitrite Negative (NEG) Urine Bilirubin Negative (NEG) Urine Urobilinogen Dipstick 0.2 mg/dL (0.2 mg/dL) Urine Leukocyte Esterase Negative (NEG) Urine RBC Occ /HPF (0-2) Urine WBC 0 /HPF (0-4) Urine Squamous Epithelial Cells Few /LPF Urine Renal Epithelial Cells Occ /LPF Urine Bacteria 0 /HPF (0-FEW) Urine Mucus Slight /LPF Medications Current Medications Dexamethasone Sodium Phosphate (Decadron) 4 mg 1X ONCE IV Last administered on 12/27/18at 05:42; Start 12/27/18 at 05:30; Stop 12/27/18 at 05:31; Status DC Hydromorphone HCl (Dilaudid) 0.5 mg 1X ONCE IV Last administered on 12/27/18at 05:52; Start 12/27/18 at 06:00; Stop 12/27/18 at 06:01; Status DC Hydromorphone HCl (Dilaudid) 1 mg 1X ONCE IV Last administered on 12/27/18at 07:09; Start 12/27/18 at 07:30; Stop 12/27/18 at 07:31; Status DC Morphine Sulfate (Morphine Sulfate) 4 mg PRN Q2HR PRN IV PAIN Last administered on 12/27/18at 10:18; Start 12/27/18 at 09:30; Stop 12/27/18 at 10:18; Status DC Amlodipine Besylate (Norvasc) 10 mg DAILY PO Last administered on 12/28/18at 09:38; Start 12/27/18 at 12:00 Losartan Potassium (Cozaar) 50 mg DAILY PO ; Start 12/27/18 at 12:00 Acetaminophen (Tylenol) 650 mg PRN Q6HRS PRN PO MILD PAIN / TEMP; Start 12/27/18 at 11:00 Acetaminophen/ Hydrocodone Bitart (Lortab 5/325) 1 tab PRN Q4HRS PRN PO MODERATE PAIN; Start 12/27/18 at 11:00 Acetaminophen/ Hydrocodone Bitart (Lortab 10/325) 1 tab PRN Q4HRS PRN PO SEVERE PAIN Last administered on 12/28/18at 09:48; Start 12/27/18 at 11:00 Morphine Sulfate (Morphine Sulfate) 2 mg PRN Q4HRS PRN IV MILD-MOD PAIN Last administered on 12/27/18at 19:59; Start 12/27/18 at 11:00 Magnesium Hydroxide (Milk Of Magnesia) 2,400 mg PRN DAILY PRN PO CONSTIPATION; Start 12/27/18 at 11:00 Ondansetron HCl (Zofran) 4 mg PRN Q6HRS PRN IV NAUSEA/VOMITING; Start 12/27/18 at 12:30; Stop 12/28/18 at 12:29 Fentanyl Citrate (Fentanyl 2ml Vial) 25 mcg PRN Q5MIN PRN IV MILD PAIN 1-3 Last administered on 12/27/18at 17:56; Start 12/27/18 at 12:30; Stop 12/28/18 at 00:09; Status DC Fentanyl Citrate (Fentanyl 2ml Vial) 50 mcg PRN Q5MIN PRN IV MODERATE TO SEVERE PAIN; Start 12/27/18 at 12:30; Stop 12/28/18 at 00:09; Status DC Morphine Sulfate (Morphine Sulfate) 1 mg PRN Q10MIN PRN IV SEVERE PAIN 7-10; Start 12/27/18 at 12:30; Stop 12/28/18 at 00:09; Status DC Ringer's Solution 1,000 ml @ 30 mls/hr Q24H IV ; Start 12/27/18 at 12:26; Stop 12/28/18 at 00:09; Status DC Hydromorphone HCl (Dilaudid) 0.5 mg PRN Q10MIN PRN IV SEV PAIN, Second choice; Start 12/27/18 at 12:30; Stop 12/28/18 at 12:29 Prochlorperazine Edisylate (Compazine) 5 mg PACU PRN PRN IV NAUSEA, MRX1; S tart 12/27/18 at 12:30; Stop 12/28/18 at 12:29 Propofol 20 ml @ As Directed STK-MED ONCE IV ; Start 12/27/18 at 12:34; Stop 12/27/18 at 12:35; Status DC Dexamethasone Sodium Phosphate (Decadron) 20 mg STK-MED ONCE .ROUTE ; Start 12/27/18 at 12:34; Stop 12/27/18 at 12:35; Status DC Lidocaine HCl (Lidocaine Pf 2% Vial) 5 ml STK-MED ONCE .ROUTE ; Start 12/27/18 at 12:34; Stop 12/27/18 at 12:35; Status DC Ondansetron HCl (Zofran) 4 mg STK-MED ONCE .ROUTE ; Start 12/27/18 at 12:34; Stop 12/27/18 at 12:35; Status DC Propofol 50 ml @ As Directed STK-MED ONCE IV ; Start 12/27/18 at 12:34; Stop 12/27/18 at 12:35; Status DC Rocuronium [place] (Zemuron) 50 mg STK-MED ONCE .ROUTE ; Start 12/27/18 at 12:34; Stop 12/27/18 at 12:35; Status DC Remifentanil HCl (Ultiva) 2 mg STK-MED ONCE IV ; Start 12/27/18 at 12:35; Stop 12/27/18 at 12:35; Status DC Bacitracin 28713 unit/Sodium Chloride 1,000 ml @ 1,000 mls/hr 1X ONCE IRR Last administered on 12/27/18at 15:54; Start 12/27/18 at 13:00; Stop 12/27/18 at 13:59; Status DC Bupivacaine HCl/ Epinephrine Bitart (Sensorcain-Epi 0.5%-1:083046 Mpf) 30 ml 1X ONCE INJ Last administered on 12/27/18at 18:09; Start 12/27/18 at 13:00; Stop 12/27/18 at 13:01; Status DC Phenylephrine HCl (Vin-Synephrine Inj) 10 mg STK-MED ONCE .ROUTE ; Start 12/27/18 at 12:46; Stop 12/27/18 at 12:46; Status DC Gelatin (Gelfoam Size 100) 1 each STK-MED ONCE .ROUTE Last administered on 12/27/18at 15:52; Start 12/27/18 at 12:46; Stop 12/27/18 at 12:47; Status DC Ketorolac Tromethamine (Toradol Im) 60 mg STK-MED ONCE .ROUTE Last administered on 12/27/18at 15:52; Start 12/27/18 at 12:46; Stop 12/27/18 at 12:47; Status DC Thrombin 20,000 unit STK-MED ONCE TP Last administered on 12/27/18at 15:52; Start 12/27/18 at 12:46; Stop 12/27/18 at 12:47; Status DC Cefazolin Sodium/ Dextrose 50 ml @ 100 mls/hr 1X ONCE IV Last administered on 12/27/18at 14:53; Start 12/27/18 at 13:30; Stop 12/27/18 at 13:59; Status DC Glycopyrrolate (Robinul) 1 mg STK-MED ONCE .ROUTE ; Start 12/27/18 at 13:58; Stop 12/27/18 at 13:58; Status DC Propofol 50 ml @ As Directed STK-MED ONCE IV ; Start 12/27/18 at 14:56; Stop 12/27/18 at 14:56; Status DC Cefazolin Sodium (Ancef) 1 gm STK-MED ONCE .ROUTE ; Start 12/27/18 at 14:59; Stop 12/27/18 at 15:00; Status DC Acetaminophen (Tylenol) 650 mg PRN Q6HRS PRN PO MILD PAIN / TEMP; Start 12/27/18 at 15:15; Status UNV Al Hydroxide/Mg Hydroxide (Mylanta Plus Xs) 30 ml PRN Q3HRS PRN PO HEARTBURN / GAS; Start 12/27/18 at 15:15 Calcium Carbonate/ Glycine (Tums) 500 mg PRN Q3HRS PRN PO INDIGESTION; Start 12/27/18 at 15:15 Diphenhydramine HCl (Benadryl) 25 mg PRN Q6HRS PRN PO ITCHING; Start 12/27/18 at 15:15 Naloxone HCl (Narcan) 0.1 mg PRN Q2MIN PRN IV ADMIN; Start 12/27/18 at 15:15 Sodium Chloride (Normal Saline Flush) 3 ml QSHIFT PRN IV AFTER MEDS AND BLOOD DRAWS; Start 12/27/18 at 15:15 Docusate Sodium (Colace) 100 mg BID PO Last administered on 12/28/18at 09:38; Start 12/27/18 at 21:00 Magnesium Hydroxide (Milk Of Magnesia) 2,400 mg PRN Q12HR PRN PO CONSTIPATION; Start 12/27/18 at 15:15; Status UNV Fentanyl Citrate (Fentanyl 2ml Vial) 50 mcg PRN Q2HR PRN IV SEVERE PAIN Last administered on 12/28/18at 05:24; Start 12/27/18 at 15:15 Potassium Chloride/Dextrose/ Sod Cl 1,000 ml @ 75 mls/hr [id number] IV Last administered on 12/28/18at 06:25; Start 12/27/18 at 16:00 Desflurane (Suprane) 90 ml STK-MED ONCE IH ; Start 12/27/18 at 16:06; Stop 12/27/18 at 16:07; Status DC Neostigmine Methylsulfate (Neostigmine Methylsulfate) 5 mg STK-MED ONCE .ROUTE ; Start 12/27/18 at 16:53; Stop 12/27/18 at 16:53; Status DC Fentanyl Citrate (Fentanyl 2ml Vial) 100 mcg STK-MED ONCE .ROUTE ; Start 12/27/18 at 17:46; Stop 12/27/18 at 17:47; Status DC Active Scripts Active Reported Tizanidine Hcl 4 Mg Tablet 2 Mg PO Q6HRS PRN Macrobid 100 Mg Capsule (Nitrofurantoin Monohyd/M-Cryst) 100 Mg Capsule 1 Cap PO BID Benicar (Olmesartan Medoxomil) 20 Mg Tablet 20 Mg PO DAILY Amlodipine Besylate 10 Mg Tablet 10 Mg PO DAILY Vitals/I & O Vital Sign - Last 24 Hours 12/27/18 12/27/18 12/27/18 12/27/18 10:58 13:38 17:25 17:40 Temp 97.0 98.9 98.9 97.0 98.9 98.9 Pulse 89 104 106 Resp 16 18 18 B/P (MAP) 166/78 (107) 154/80 140/78 Pulse Ox 96 100 100 O2 Delivery Room Air Room Air Room Air Simple Mask O2 Flow Rate 8 8 12/27/18 12/27/18 12/27/18 12/27/18 17:45 17:55 17:56 18:10 Temp 98.9 98.9 98.9 98.9 Pulse 95 96 Resp 20 20 20 B/P (MAP) 141/80 123/79 Pulse Ox 98 100 96 O2 Delivery Mask Room Air Simple Mask Room Air O2 Flow Rate 8 8.0 12/27/18 12/27/18 12/27/18 12/27/18 19:15 19:30 20:00 20:00 Temp 99.4 98.0 97.9 99.4 98.0 97.9 Pulse 83 98 96 Resp 18 20 18 B/P (MAP) 141/78 (99) 155/88 (110) 127/63 (84) Pulse Ox 94 94 94 O2 Delivery Room Air Room Air Room Air Room Air 12/27/18 12/27/18 12/27/18 12/28/18 20:30 21:30 23:29 02:56 Temp 98.0 98.9 99.2 99.7 98.0 98.9 99.2 99.7 Pulse 86 85 89 79 Resp 18 20 20 18 B/P (MAP) 114/67 (83) 114/58 (76) 116/61 (79) 99/54 (69) Pulse Ox 95 95 95 94 O2 Delivery Room Air Room Air Room Air Room Air 12/28/18 12/28/18 12/28/18 12/28/18 03:02 07:00 09:38 09:48 Temp 97.9 97.9 Pulse 78 78 Resp 18 B/P (MAP) 116/56 (76) 116/56 Pulse Ox 94 95 O2 Delivery Room Air Room Air Room Air Intake and Output 12/27/18 12/27/18 12/28/18 14:59 22:59 06:59 Intake Total 700 ml 240 ml Output Total 500 ml 475 ml 375 ml Balance -500 ml 225 ml -135 ml RIVKA PFEIFFER MD Dec 28, 2018 10:36
[2018-12-28 11:00] VITALS: BP 128/63
--- NOTE | 2018-12-28 11:58 | PDOC ---
PROGRESS NOTES Subjective Subjective POD #1 S/P laminectomy L4-5 up in chair eating lunch ambulated in room with walker but legs felt weak pain in legs has resolved since surgery she reports tingling in the thighs and numbness below the knees Objective Objective Vital Signs Date Time Temp Pulse Resp B/P (MAP) Pulse Ox O2 Delivery O2 Flow Rate FiO2 12/28/18 09:48 Room Air 12/28/18 09:38 78 116/56 12/28/18 07:00 97.9 18 95 97.9 12/27/18 17:56 8.0 Intake and Output 12/28/18 06:59 Intake Total 940 ml Output Total 1350 ml Balance -410 ml Intake Oral 240 ml IV Total 700 ml Output Urine Total 1300 ml Estimated Blood Loss 50 ml Physical Exam General: Alert, Oriented X3, Cooperative, No acute distress MUSCULOSKELETAL: Other (BROCK) Neuro: Normal speech, Other Skin: Other (dressing dry and intact) Assessment Assessment Problems Medical Problems: (1) Back pain Status: Acute (2) Bilateral sciatica Status: Chronic (3) Hypertension Status: Chronic (4) Spinal stenosis at L4-L5 level Status: Acute (5) Urinary incontinence Status: Acute (6) Weakness of both lower extremities Status: Acute Plan Plan of Care encouraged LE exercises while in chair PT Consult Dr. Melba miranda in SCDs Comment Review of Relevant I have reviewed the following items magno (where applicable) has been applied. Labs Laboratory Tests Test 12/27/18 05:20 12/27/18 06:00 White Blood Count 5.1 x10^3/uL (4.0-11.0) Red Blood Count 4.51 x10^6/uL (3.50-5.40) Hemoglobin 13.4 g/dL (12.0-15.5) Hematocrit 39.7 % (36.0-47.0) Mean Corpuscular Volume 88 fL (79-100) Mean Corpuscular Hemoglobin 30 pg (25-35) Mean Corpuscular Hemoglobin Concent 34 g/dL (31-37) Red Cell Distribution Width 13.9 % (11.5-14.5) Platelet Count 227 x10^3/uL (140-400) Neutrophils (%) (Auto) 44 % (31-73) Lymphocytes (%) (Auto) 44 % (24-48) Monocytes (%) (Auto) 8 % (0-9) Eosinophils (%) (Auto) 3 % (0-3) Basophils (%) (Auto) 1 % (0-3) Neutrophils # (Auto) 2.2 x10^3/uL (1.8-7.7) Lymphocytes # (Auto) 2.2 x10^3/uL (1.0-4.8) Monocytes # (Auto) 0.4 x10^3/uL (0.0-1.1) Eosinophils # (Auto) 0.2 x10^3/uL (0.0-0.7) Basophils # (Auto) 0.0 x10^3/uL (0.0-0.2) Sodium Level 142 mmol/L (136-145) Potassium Level 3.8 mmol/L (3.5-5.1) Chloride Level 106 mmol/L (98-107) Carbon Dioxide Level 26 mmol/L (21-32) Anion Gap 10 (6-14) Blood Urea Nitrogen 14 mg/dL (7-20) Creatinine 1.1 mg/dL (0.6-1.0) Estimated GFR (Cockcroft-Gault) 59.2 BUN/Creatinine Ratio 13 (6-20) Glucose Level 118 mg/dL (70-99) Calcium Level 8.7 mg/dL (8.5-10.1) Total Bilirubin 0.4 mg/dL (0.2-1.0) Aspartate Amino Transf (AST/SGOT) 36 U/L (15-37) Alanine Aminotransferase (ALT/SGPT) 35 U/L (14-59) Alkaline Phosphatase 80 U/L (46-116) Total Protein 7.4 g/dL (6.4-8.2) Albumin 3.5 g/dL (3.4-5.0) Albumin/Globulin Ratio 0.9 (1.0-1.7) Urine Collection Type U cath Urine Color Yellow Urine Clarity Clear Urine pH 5.5 Urine Specific [place] 1.010 Urine Protein Negative mg/dL (NEG-TRACE) Urine Glucose (UA) Negative mg/dL (NEG) Urine Ketones (Stick) Negative mg/dL (NEG) Urine Blood Negative (NEG) Urine Nitrite Negative (NEG) Urine Bilirubin Negative (NEG) Urine Urobilinogen Dipstick 0.2 mg/dL (0.2 mg/dL) Urine Leukocyte Esterase Negative (NEG) Urine RBC Occ /HPF (0-2) Urine WBC 0 /HPF (0-4) Urine Squamous Epithelial Cells Few /LPF Urine Renal Epithelial Cells Occ /LPF Urine Bacteria 0 /HPF (0-FEW) Urine Mucus Slight /LPF Medications Current Medications Dexamethasone Sodium Phosphate (Decadron) 4 mg 1X ONCE IV Last administered on 12/27/18at 05:42; Start 12/27/18 at 05:30; Stop 12/27/18 at 05:31; Status DC Hydromorphone HCl (Dilaudid) 0.5 mg 1X ONCE IV Last administered on 12/27/18at 05:52; Start 12/27/18 at 06:00; Stop 12/27/18 at 06:01; Status DC Hydromorphone HCl (Dilaudid) 1 mg 1X ONCE IV Last administered on 12/27/18at 07:09; Start 12/27/18 at 07:30; Stop 12/27/18 at 07:31; Status DC Morphine Sulfate (Morphine Sulfate) 4 mg PRN Q2HR PRN IV PAIN Last administered on 12/27/18at 10:18; Start 12/27/18 at 09:30; Stop 12/27/18 at 10:18; Status DC Amlodipine Besylate (Norvasc) 10 mg DAILY PO Last administered on 12/28/18at 09:38; Start 12/27/18 at 12:00; Stop 12/28/18 at 10:34; Status DC Losartan Potassium (Cozaar) 50 mg DAILY PO ; Start 12/27/18 at 12:00 Acetaminophen (Tylenol) 650 mg PRN Q6HRS PRN PO MILD PAIN / TEMP; Start 12/27/18 at 11:00 Acetaminophen/ Hydrocodone Bitart (Lortab 5/325) 1 tab PRN Q4HRS PRN PO MODERATE PAIN; Start 12/27/18 at 11:00 Acetaminophen/ Hydrocodone Bitart (Lortab 10/325) 1 tab PRN Q4HRS PRN PO SEVERE PAIN Last administered on 12/28/18at 09:48; Start 12/27/18 at 11:00 Morphine Sulfate (Morphine Sulfate) 2 mg PRN Q4HRS PRN IV MILD-MOD PAIN Last administered on 12/27/18at 19:59; Start 12/27/18 at 11:00 Magnesium Hydroxide (Milk Of Magnesia) 2,400 mg PRN DAILY PRN PO CONSTIPATION; Start 12/27/18 at 11:00 Ondansetron HCl (Zofran) 4 mg PRN Q6HRS PRN IV NAUSEA/VOMITING; Start 12/27/18 at 12:30; Stop 12/28/18 at 12:29 Fentanyl Citrate (Fentanyl 2ml Vial) 25 mcg PRN Q5MIN PRN IV MILD PAIN 1-3 Last administered on 12/27/18at 17:56; Start 12/27/18 at 12:30; Stop 12/28/18 at 00:09; Status DC Fentanyl Citrate (Fentanyl 2ml Vial) 50 mcg PRN Q5MIN PRN IV MODERATE TO SEVERE PAIN; Start 12/27/18 at 12:30; Stop 12/28/18 at 00:09; Status DC Morphine Sulfate (Morphine Sulfate) 1 mg PRN Q10MIN PRN IV SEVERE PAIN 7-10; Start 12/27/18 at 12:30; Stop 12/28/18 at 00:09; Status DC Ringer's Solution 1,000 ml @ 30 mls/hr Q24H IV ; Start 12/27/18 at 12:26; Stop 12/28/18 at 00:09; Status DC Hydromorphone HCl (Dilaudid) 0.5 mg PRN Q10MIN PRN IV SEV PAIN, Second choice; Start 12/27/18 at 12:30; Stop 12/28/18 at 12:29 Prochlorperazine Edisylate (Compazine) 5 mg PACU PRN PRN IV NAUSEA, MRX1; Start 12/27/18 at 12:30; Stop 12/28/18 at 12:29 Propofol 20 ml @ As Directed STK-MED ONCE IV ; Start 12/27/18 at 12:34; Stop 12/27/18 at 12:35; Status DC Dexamethasone Sodium Phosphate (Decadron) 20 mg STK-MED ONCE .ROUTE ; Start 12/27/18 at 12:34; Stop 12/27/18 at 12:35; Status DC Lidocaine HCl (Lidocaine Pf 2% Vial) 5 ml STK-MED ONCE .ROUTE ; Start 12/27/18 at 12:34; Stop 12/27/18 at 12:35; Status DC Ondansetron HCl (Zofran) 4 mg STK-MED ONCE .ROUTE ; Start 12/27/18 at 12:34; Stop 12/27/18 at 12:35; Status DC Propofol 50 ml @ As Directed STK-MED ONCE IV ; Start 12/27/18 at 12:34; Stop 12/27/18 at 12:35; Status DC Rocuronium [place] (Zemuron) 50 mg STK-MED ONCE .ROUTE ; Start 12/27/18 at 12:34; Stop 12/27/18 at 12:35; Status DC Remifentanil HCl (Ultiva) 2 mg STK-MED ONCE IV ; Start 12/27/18 at 12:35; Stop 12/27/18 at 12:35; Status DC Bacitracin 93283 unit/Sodium Chloride 1,000 ml @ 1,000 mls/hr 1X ONCE IRR Last administered on 12/27/18at 15:54; Start 12/27/18 at 13:00; Stop 12/27/18 at 13:59; Status DC Bupivacaine HCl/ Epinephrine Bitart (Sensorcain-Epi 0.5%-1:251841 Mpf) 30 ml 1X ONCE INJ Last administered on 12/27/18at 18:09; Start 12/27/18 at 13:00; Stop 12/27/18 at 13:01; Status DC Phenylephrine HCl (Vin-Synephrine Inj) 10 mg STK-MED ONCE .ROUTE ; Start 12/27/18 at 12:46; Stop 12/27/18 at 12:46; Status DC Gelatin (Gelfoam Size 100) 1 each STK-MED ONCE .ROUTE Last administered on 12/27/18at 15:52; Start 12/27/18 at 12:46; Stop 12/27/18 at 12:47; Status DC Ketorolac Tromethamine (Toradol Im) 60 mg STK-MED ONCE .ROUTE Last administered on 12/27/18at 15:52; Start 12/27/18 at 12:46; Stop 12/27/18 at 12:47; Status DC Thrombin 20,000 unit STK-MED ONCE TP Last administered on 12/27/18at 15:52; Start 12/27/18 at 12:46; Stop 12/27/18 at 12:47; Status DC Cefazolin Sodium/ Dextrose 50 ml @ 100 mls/hr 1X ONCE IV Last administered on 12/27/18at 14:53; Start 12/27/18 at 13:30; Stop 12/27/18 at 13:59; Status DC Glycopyrrolate (Robinul) 1 mg STK-MED ONCE .ROUTE ; Start 12/27/18 at 13:58; Stop 12/27/18 at 13:58; Status DC Propofol 50 ml @ As Directed STK-MED ONCE IV ; Start 12/27/18 at 14:56; Stop 12/27/18 at 14:56; Status DC Cefazolin Sodium (Ancef) 1 gm STK-MED ONCE .ROUTE ; Start 12/27/18 at 14:59; Stop 12/27/18 at 15:00; Status DC Acetaminophen (Tylenol) 650 mg PRN Q6HRS PRN PO MILD PAIN / TEMP; Start 12/27/18 at 15:15; Status UNV Al Hydroxide/Mg Hydroxide (Mylanta Plus Xs) 30 ml PRN Q3HRS PRN PO HEARTBURN / GAS; Start 12/27/18 at 15:15 Calcium Carbonate/ Glycine (Tums) 500 mg PRN Q3HRS PRN PO INDIGESTION; Start 12/27/18 at 15:15 Diphenhydramine HCl (Benadryl) 25 mg PRN Q6HRS PRN PO ITCHING; Start 12/27/18 at 15:15 Naloxone HCl (Narcan) 0.1 mg PRN Q2MIN PRN IV ADMIN; Start 12/27/18 at 15:15 Sodium Chloride (Normal Saline Flush) 3 ml QSHIFT PRN IV AFTER MEDS AND BLOOD DRAWS; Start 12/27/18 at 15:15 Docusate Sodium (Colace) 100 mg BID PO Last administered on 12/28/18at 09:38; Start 12/27/18 at 21:00 Magnesium Hydroxide (Milk Of Magnesia) 2,400 mg PRN Q12HR PRN PO CONSTIPATION; Start 12/27/18 at 15:15; Status UNV Fentanyl Citrate (Fentanyl 2ml Vial) 50 mcg PRN Q2HR PRN IV SEVERE PAIN Last administered on 12/28/18at 05:24; Start 12/27/18 at 15:15 Potassium Chloride/Dextrose/ Sod Cl 1,000 ml @ 75 mls/hr [id number] IV Last administered on 12/28/18at 06:25; Start 12/27/18 at 16:00; Stop 12/28/18 at 10:31; Status DC Desflurane (Suprane) 90 ml STK-MED ONCE IH ; Start 12/27/18 at 16:06; Stop 12/27/18 at 16:07; Status DC Neostigmine Methylsulfate (Neostigmine Methylsulfate) 5 mg STK-MED ONCE .ROUTE ; Start 12/27/18 at 16:53; Stop 12/27/18 at 16:53; Status DC Fentanyl Citrate (Fentanyl 2ml Vial) 100 mcg STK-MED ONCE .ROUTE ; Start 12/27/18 at 17:46; Stop 12/27/18 at 17:47; Status DC Amlodipine Besylate (Norvasc) 5 mg DAILY PO ; Start 12/28/18 at 12:00 Active Scripts Active Reported Tizanidine Hcl 4 Mg Tablet 2 Mg PO Q6HRS PRN Macrobid 100 Mg Capsule (Nitrofurantoin Monohyd/M-Cryst) 100 Mg Capsule 1 Cap PO BID Benicar (Olmesartan Medoxomil) 20 Mg Tablet 20 Mg PO DAILY Amlodipine Besylate 10 Mg Tablet 10 Mg PO DAILY Vitals/I & O Vital Sign - Last 24 Hours 12/27/18 12/27/18 12/27/18 12/27/18 13:38 17:25 17:40 17:45 Temp 98.9 98.9 98.9 98.9 Pulse 104 106 Resp 18 B/P (MAP) 154/80 140/78 Pulse Ox 100 100 O2 Delivery Room Air Room Air Simple Mask Mask O2 Flow Rate 8 8 8 12/27/18 12/27/18 12/27/18 12/27/18 17:55 17:56 18:10 19:15 Temp 98.9 98.9 99.4 98.9 98.9 99.4 Pulse 95 96 83 Resp 20 20 20 18 B/P (MAP) 141/80 123/79 141/78 (99) Pulse Ox 98 100 96 94 O2 Delivery Room Air Simple Mask Room Air Room Air O2 Flow Rate 8.0 12/27/18 12/27/18 12/27/18 12/27/18 19:30 20:00 20:00 20:30 Temp 98.0 97.9 98.0 98.0 97.9 98.0 Pulse 98 96 86 Resp 20 18 18 B/P (MAP) 155/88 (110) 127/63 (84) 114/67 (83) Pulse Ox 94 94 95 O2 Delivery Room Air Room Air Room Air Room Air 12/27/18 12/27/18 12/28/18 12/28/18 21:30 23:29 02:56 03:02 Temp 98.9 99.2 99.7 98.9 99.2 99.7 Pulse 85 89 79 Resp 20 20 18 B/P (MAP) 114/58 (76) 116/61 (79) 99/54 (69) Pulse Ox 95 95 94 94 O2 Delivery Room Air Room Air Room Air Room Air 12/28/18 12/28/18 12/28/18 12/28/18 07:00 08:00 09:38 09:48 Temp 97.9 97.9 Pulse 78 78 Resp 18 B/P (MAP) 116/56 (76) 116/56 Pulse Ox 95 O2 Delivery Room Air Room Air Room Air Intake and Output 12/27/18 12/27/18 12/28/18 14:59 22:59 06:59 Intake Total 700 ml 240 ml Output Total 500 ml 475 ml 375 ml Balance -500 ml 225 ml -135 ml MCKINLEY ALEGRE APRN Dec 28, 2018 11:58
[2018-12-28] MEDS: amLODIPine BESYLATE 5 MG TABLET PO SCH (12:00)
--- NOTE | 2018-12-28 12:40 | NUR ---
SS following for discharge planning. SS reviewed pt chart. Pt is from home and is currently on room air. PT/OT recommended acute rehabilitation. conservation planner, Zandra Rosa, met with pt to discuss discharge planning and acute rehabilitation. Pt agreeable to acute rehabilitation at discharge and requested that referral be phoned and faxed to [facility]. conservation planner phoned and faxed referral. SS currently awaiting acceptance decision and insurance determination and will proceed accordingly with discharge planning.
--- NOTE | 2018-12-28 14:50 | NUR ---
PT has an episode of bleeding from incision site. Large size serosanguineous drainage noted on linen. Area covered with abd pad and pt helped back in bed by PT and nurse. Will cont. to monitor site.
[2018-12-28 15:00] VITALS: BP 140/74
[2018-12-28] MEDS ORDERED: BISACODYL 10 MG SUPP.RECT. PR PRN (16:00)
[2018-12-28] MEDS: BISACODYL 5 MG TABLET.DR. PO SCH (17:33)
[2018-12-28 19:00] VITALS: BP 130/65
[2018-12-28 23:00] VITALS: BP 104/58
[2018-12-29] MEDS: HYDROcodone/APAP 10/325 1 TAB TABLET PO PRN ×5 (00:30→17:32)
--- NOTE | 2018-12-29 01:04 | CONS ---
DATE OF CONSULTATION: 12/28/2018 ATTENDING PHYSICIAN: Sin Peña MD The patient was seen at the request of Dr. Mcdonnell for rehab evaluation. HISTORY OF PRESENT ILLNESS: This is a 73-year-old right-handed female, retired teacher, but still works parttime. The patient with known hypertension, started having some lower extremity pain around 10:00 a.m. on 12/26/2018. She took ibuprofen on her way, went to [employer] for shopping. She continued to have lower extremity discomfort and numbness in her legs and also some numbness in the perineal area and pain in her hips and buttock area radiating to her feet and later in the night, she had some difficulty urinating; could not urine out. Did have a stream of urine. She was seen at [facility] Emergency Room where they thought she had urinary tract infection and give her oral antibiotics and tizanidine. Symptoms worsened that night. She was admitted through the Emergency Room at [facility] where she had an MRI scan of her lumbar vertebrae, which revealed severe L4-L5 disk attenuation on the thecal sac consistent with lumbar spinal stenosis. Also, moderate lumbar spinal stenosis at L3-L4 and mild at L2-L3 and multilevel degenerative disk disease from L2 to L5. The patient had an indwelling Fang catheter placed and had 1100 mL of urine. No evidence of any pyuria. The patient underwent lumbar decompression laminectomy done on 12/27/2018 and had lumbar microdiskectomy at L4-L5. Postop, she admits less pain, but still having pain with getting in and out of the bed and also while walking. She admits numbness below the knee level. The patient is passing gasses, but no bowel movement since 12/26/2018. THE PATIENT IS KNOWN ALLERGIC TO LATEX. PAST MEDICAL HISTORY: Also includes cholecystectomy. The patient had 1 step to get into the house. She lives with her daughter. PHYSICAL EXAMINATION: Today revealed a middle-aged female. She is alert, oriented to time, place, person and circumstance and follows commands appropriately, moves all 4 extremities voluntarily where she had 5/5 grade muscle strength and deep tendon reflexes are 1 to 2+ and symmetrical in the upper extremities, 1+ at both knees, absent at both ankles. She had decreased touch and pinprick sensation over L5-S1 dermatome area. The patient had dressing to her lumbar spine area. She had diffuse tenderness to palpation over lumbar spine area. Straight leg raising test is negative bilaterally. The patient requires minimal assistance to supervision with bed mobility and transfers. Once up, she had difficulty standing up straight. She had tendency to lean backwards. She felt less painful using abdominal binder as lumbar corset. The patient is slightly obese. ASSESSMENT: 1. Mobility and self-care limitation in a patient status post lumbar decompression laminectomy for treatment of lumbar spinal stenosis from degenerative disk disease and degenerative joint disease of L4-L5 level with lumbar radiculitis with paresthesia in her lower extremities. 2. Neurogenic bowel and bladder. 3. Obesity. 4. Hypertension. 5. Clinical evidence of peripheral neuropathy. RECOMMENDATIONS: Agree with the plan for transfer to inpatient rehab program to remove indwelling Fang catheter when she can transfer with 1-person assistance. Dr. Mcdonnell, I appreciate asking me to participate in the care of this interesting patient. I will be glad to follow her with you as needed for her rehabilitation. DONITA MONTE MD DR: MAR/patricio JOB#: [id number] / [id number]
[2018-12-29 03:00] VITALS: BP 102/56
[2018-12-29 07:00] VITALS: BP 100/53
[2018-12-29] MEDS: LOSARTAN POTASSIUM 50 MG TABLET. PO SCH (09:00)
[2018-12-29] MEDS ORDERED: ASCORBIC ACID 500 MG TABLET PO SCH (09:00)
--- NOTE | 2018-12-29 09:03 | PDOC ---
PROGRESS NOTES Subjective Subjective She admits soreness in her low back. She is passing gases but no bowel movement yet. She slept better last night. Objective Objective Vital Signs Date Time Temp Pulse Resp B/P (MAP) Pulse Ox O2 Delivery O2 Flow Rate FiO2 12/29/18 07:00 98.2 68 16 100/53 (69) 100 Room Air 98.2 12/28/18 22:37 8.0 Intake and Output 12/29/18 06:59 Intake Total 1000 ml Output Total 3450 ml Balance -2450 ml Intake Oral 1000 ml Output Urine Total 3450 ml Physical Exam Physical Exam She is alert,supine in bed and she had indwelling Fang catheter in place.She is eating good.No change with her neurological status. Assessment Assessment Problems Medical Problems: (1) Back pain Status: Acute (2) Bilateral sciatica Status: Chronic (3) Hypertension Status: Chronic (4) Spinal stenosis at L4-L5 level Status: Acute (5) Urinary incontinence Status: Acute (6) Weakness of both lower extremities Status: Acute Plan Plan of Care To get her up as tolerated and to d/c Fang catheter,to give a trial at voiding,when she can transfer with one person help. I spoke to her daughter at bedside.To rehab hospital for a short stay when medically stable. Comment Review of Relevant I have reviewed the following items magno (where applicable) has been applied. Medications Current Medications Dexamethasone Sodium Phosphate (Decadron) 4 mg 1X ONCE IV Last administered on 12/27/18at 05:42; Start 12/27/18 at 05:30; Stop 12/27/18 at 05:31; Status DC Hydromorphone HCl (Dilaudid) 0.5 mg 1X ONCE IV Last administered on 12/27/18at 05:52; Start 12/27/18 at 06:00; Stop 12/27/18 at 06:01; Status DC Hydromorphone HCl (Dilaudid) 1 mg 1X ONCE IV Last administered on 12/27/18at 07:09; Start 12/27/18 at 07:30; Stop 12/27/18 at 07:31; Status DC Morphine Sulfate (Morphine Sulfate) 4 mg PRN Q2HR PRN IV PAIN Last administered on 12/27/18at 10:18; Start 12/27/18 at 09:30; Stop 12/27/18 at 10:18; Status DC Amlodipine Besylate (Norvasc) 10 mg DAILY PO Last administered on 12/28/18at 09:38; Start 12/27/18 at 12:00; Stop 12/28/18 at 10:34; Status DC Losartan Potassium (Cozaar) 50 mg DAILY PO ; Start 12/27/18 at 12:00 Acetaminophen (Tylenol) 650 mg PRN Q6HRS PRN PO MILD PAIN / TEMP; Start 12/27/18 at 11:00 Acetaminophen/ Hydrocodone Bitart (Lortab 5/325) 1 tab PRN Q4HRS PRN PO MODERATE PAIN; Start 12/27/18 at 11:00 Acetaminophen/ Hydrocodone Bitart (Lortab 10/325) 1 tab PRN Q4HRS PRN PO SEVERE PAIN Last administered on 12/29/18at 04:39; Start 12/27/18 at 11:00 Morphine Sulfate (Morphine Sulfate) 2 mg PRN Q4HRS PRN IV MILD-MOD PAIN Last administered on 12/27/18at 19:59; Start 12/27/18 at 11:00 Magnesium Hydroxide (Milk Of Magnesia) 2,400 mg PRN DAILY PRN PO CONSTIPATION; Start 12/27/18 at 11:00 Ondansetron HCl (Zofran) 4 mg PRN Q6HRS PRN IV NAUSEA/VOMITING; Start 12/27/18 at 12:30; Stop 12/28/18 at 12:29; Status DC Fentanyl Citrate (Fentanyl 2ml Vial) 25 mcg PRN Q5MIN PRN IV MILD PAIN 1-3 Last administered on 12/27/18at 17:56; Start 12/27/18 at 12:30; Stop 12/28/18 at 00:09; Status DC Fentanyl Citrate (Fentanyl 2ml Vial) 50 mcg PRN Q5MIN PRN IV MODERATE TO SEVERE PAIN; Start 12/27/18 at 12:30; Stop 12/28/18 at 00:09; Status DC Morphine Sulfate (Morphine Sulfate) 1 mg PRN Q10MIN PRN IV SEVERE PAIN 7-10; Start 12/27/18 at 12:30; Stop 12/28/18 at 00:09; Status DC Ringer's Solution 1,000 ml @ 30 mls/hr Q24H IV ; Start 12/27/18 at 12:26; Stop 12/28/18 at 00:09; Status DC Hydromorphone HCl (Dilaudid) 0.5 mg PRN Q10MIN PRN IV SEV PAIN, Second choice; Start 12/27/18 at 12:30; Stop 12/28/18 at 12:29; Status DC Prochlorperazine Edisylate (Compazine) 5 mg PACU PRN PRN IV NAUSEA, MRX1; Start 12/27/18 at 12:30; Stop 12/28/18 at 12:29; Status DC Propofol 20 ml @ As Directed STK-MED ONCE IV ; Start 12/27/18 at 12:34; Stop 12/27/18 at 12:35; Status DC Dexamethasone Sodium Phosphate (Decadron) 20 mg STK-MED ONCE .ROUTE ; Start 12/27/18 at 12:34; Stop 12/27/18 at 12:35; Status DC Lidocaine HCl (Lidocaine Pf 2% Vial) 5 ml STK-MED ONCE .ROUTE ; Start 12/27/18 at 12:34; Stop 12/27/18 at 12:35; Status DC Ondansetron HCl (Zofran) 4 mg STK-MED ONCE .ROUTE ; Start 12/27/18 at 12:34; Stop 12/27/18 at 12:35; Status DC Propofol 50 ml @ As Directed STK-MED ONCE IV ; Start 12/27/18 at 12:34; Stop 12/27/18 at 12:35; Status DC Rocuronium [place] (Zemuron) 50 mg STK-MED ONCE .ROUTE ; Start 12/27/18 at 12:34; Stop 12/27/18 at 12:35; Status DC Remifentanil HCl (Ultiva) 2 mg STK-MED ONCE IV ; Start 12/27/18 at 12:35; Stop 12/27/18 at 12:35; Status DC Bacitracin 74675 unit/Sodium Chloride 1,000 ml @ 1,000 mls/hr 1X ONCE IRR Last administered on 12/27/18at 15:54; Start 12/27/18 at 13:00; Stop 12/27/18 at 13:59; Status DC Bupivacaine HCl/ Epinephrine Bitart (Sensorcain-Epi 0.5%-1:445977 Mpf) 30 ml 1X ONCE INJ Last administered on 12/27/18at 18:09; Start 12/27/18 at 13:00; Stop 12/27/18 at 13:01; Status DC Phenylephrine HCl (Vin-Synephrine Inj) 10 mg STK-MED ONCE .ROUTE ; Start 12/27/18 at 12:46; Stop 12/27/18 at 12:46; Status DC Gelatin (Gelfoam Size 100) 1 each STK-MED ONCE .ROUTE Last administered on 12/27/18at 15:52; Start 12/27/18 at 12:46; Stop 12/27/18 at 12:47; Status DC Ketorolac Tromethamine (Toradol Im) 60 mg STK-MED ONCE .ROUTE Last administered on 12/27/18at 15:52; Start 12/27/18 at 12:46; Stop 12/27/18 at 12:47; Status DC Thrombin 20,000 unit STK-MED ONCE TP Last administered on 12/27/18at 15:52; Start 12/27/18 at 12:46; Stop 12/27/18 at 12:47; Status DC Cefazolin Sodium/ Dextrose 50 ml @ 100 mls/hr 1X ONCE IV Last administered on 12/27/18at 14:53; Start 12/27/18 at 13:30; Stop 12/27/18 at 13:59; Status DC Glycopyrrolate (Robinul) 1 mg STK-MED ONCE .ROUTE ; Start 12/27/18 at 13:58; Stop 12/27/18 at 13:58; Status DC Propofol 50 ml @ As Directed STK-MED ONCE IV ; Start 12/27/18 at 14:56; Stop 12/27/18 at 14:56; Status DC Cefazolin Sodium (Ancef) 1 gm STK-MED ONCE .ROUTE ; Start 12/27/18 at 14:59; Stop 12/27/18 at 15:00; Status DC Acetaminophen (Tylenol) 650 mg PRN Q6HRS PRN PO MILD PAIN / TEMP; Start 12/27/18 at 15:15; Status UNV Al Hydroxide/Mg Hydroxide (Mylanta Plus Xs) 30 ml PRN Q3HRS PRN PO HEARTBURN / GAS; Start 12/27/18 at 15:15 Calcium Carbonate/ Glycine (Tums) 500 mg PRN Q3HRS PRN PO INDIGESTION; Start 12/27/18 at 15:15 Diphenhydramine HCl (Benadryl) 25 mg PRN Q6HRS PRN PO ITCHING; Start 12/27/18 at 15:15 Naloxone HCl (Narcan) 0.1 mg PRN Q2MIN PRN IV ADMIN; Start 12/27/18 at 15:15 Sodium Chloride (Normal Saline Flush) 3 ml QSHIFT PRN IV AFTER MEDS AND BLOOD DRAWS; Start 12/27/18 at 15:15 Docusate Sodium (Colace) 100 mg BID PO Last administered on 12/28/18at 20:49; Start 12/27/18 at 21:00 Magnesium Hydroxide (Milk Of Magnesia) 2,400 mg PRN Q12HR PRN PO CONSTIPATION; Start 12/27/18 at 15:15; Status UNV Fentanyl Citrate (Fentanyl 2ml Vial) 50 mcg PRN Q2HR PRN IV SEVERE PAIN Last administered on 12/28/18at 05:24; Start 12/27/18 at 15:15 Potassium Chloride/Dextrose/ Sod Cl 1,000 ml @ 75 mls/hr [id number] IV Last administered on 12/28/18at 06:25; Start 12/27/18 at 16:00; Stop 12/28/18 at 10:31; Status DC Desflurane (Suprane) 90 ml STK-MED ONCE IH ; Start 12/27/18 at 16:06; Stop 12/27/18 at 16:07; Status DC Neostigmine Methylsulfate (Neostigmine Methylsulfate) 5 mg STK-MED ONCE .ROUTE ; Start 12/27/18 at 16:53; Stop 12/27/18 at 16:53; Status DC Fentanyl Citrate (Fentanyl 2ml Vial) 100 mcg STK-MED ONCE .ROUTE ; Start 12/27/18 at 17:46; Stop 12/27/18 at 17:47; Status DC Amlodipine Besylate (Norvasc) 5 mg DAILY PO ; Start 12/28/18 at 12:00 Bisacodyl (Dulcolax Tab) 10 mg DAILY PO Last administered on 12/28/18at 17:34; Start 12/28/18 at 16:00 Bisacodyl (Dulcolax Supp) 10 mg PRN DAILY PRN [place] CONSTIPATION; Start 12/28/18 at 16:00 Active Scripts Active Reported Tizanidine Hcl 4 Mg Tablet 2 Mg PO Q6HRS PRN Macrobid 100 Mg Capsule (Nitrofurantoin Monohyd/M-Cryst) 100 Mg Capsule 1 Cap PO BID Benicar (Olmesartan Medoxomil) 20 Mg Tablet 20 Mg PO DAILY Amlodipine Besylate 10 Mg Tablet 10 Mg PO DAILY Vitals/I & O Vital Sign - Last 24 Hours 12/28/18 12/28/18 12/28/18 12/28/18 09:38 09:48 11:00 12:46 Temp 98.3 98.3 Pulse 78 71 Resp 18 B/P (MAP) 116/56 128/63 (84) Pulse Ox 98 98 O2 Delivery Room Air Room Air Room Air 12/28/18 12/28/18 12/28/18 12/28/18 14:07 15:00 16:28 19:00 Temp 98.6 98.4 98.6 98.4 Pulse 73 82 Resp 18 18 B/P (MAP) 140/74 (96) 130/65 (86) Pulse Ox 98 94 94 94 O2 Delivery Room Air Room Air O2 Flow Rate 8.0 12/28/18 12/28/18 12/28/18 12/28/18 20:00 20:48 22:37 23:00 Temp 98.4 98.4 Pulse 88 Resp 16 B/P (MAP) 104/58 (73) Pulse Ox 94 94 94 O2 Delivery Room Air Room Air Room Air O2 Flow Rate 8.0 12/29/18 12/29/18 12/29/18 12/29/18 00:30 02:08 03:00 04:39 Temp 98.6 98.6 Pulse 76 Resp 16 B/P (MAP) 102/56 (71) Pulse Ox 94 94 91 91 O2 Delivery Room Air Room Air Room Air 12/29/18 12/29/18 05:52 07:00 Temp 98.2 98.2 Pulse 68 Resp 16 B/P (MAP) 100/53 (69) Pulse Ox 91 100 O2 Delivery Room Air Room Air Intake and Output 12/28/18 12/28/18 12/29/18 14:59 22:59 06:59 Intake Total 1000 ml Output Total 800 ml 2200 ml 450 ml Balance -800 ml -1200 ml -450 ml DONITA MONTE MD Dec 29, 2018 09:03
[2018-12-29] MEDS: BISACODYL 5 MG TABLET.DR. PO SCH (09:31)
[2018-12-29] MEDS: DOCUSATE SODIUM 100 MG CAPSULE. PO SCH (09:31)
[2018-12-29] MEDS: amLODIPine BESYLATE 5 MG TABLET PO SCH (09:32)
--- NOTE | 2018-12-29 10:16 | PDOC ---
PROGRESS NOTES Subjective Subjective has post op low back pain and numbness in legs below knees and difficulty with walking today. Pt recommends acute physical rehab facility [facility] discussed with dr. akers Objective Objective Vital Signs Date Time Temp Pulse Resp B/P (MAP) Pulse Ox O2 Delivery O2 Flow Rate FiO2 12/29/18 09:36 94 137/61 12/29/18 09:36 Room Air 12/29/18 07:00 98.2 16 100 98.2 12/28/18 22:37 8.0 Intake and Output 12/29/18 06:59 Intake Total 1000 ml Output Total 3450 ml Balance -2450 ml Intake Oral 1000 ml Output Urine Total 3450 ml Physical Exam Abdomen: Soft Heart: Regular rate, Normal S1, Normal S2 Extremities: No edema General: Alert HEENT: Atraumatic Lungs: Clear to auscultation Neuro: Normal speech, Other (able to dorsiflex and plantar flex both feet and bend knees. ) Psych/Mental Status: Mental status NL Skin: No rashes Assessment Assessment Problems1. Lumbar spinal stenosis, severe at L4-L5. lumbar laminectomy with L4- 5 microdiscectomy 2. Urine retention. due to cauda equina syndrome, miranda in place 3. Perineal numbness. 4. 5. Numbness in her legs. 6. Hypertension. mobility and self care deficits Medical Problems: (1) Back pain Status: Acute (2) Bilateral sciatica Status: Chronic (3) Hypertension Status: Chronic (4) Spinal stenosis at L4-L5 level Status: Acute (5) Urinary incontinence Status: Acute (6) Weakness of both lower extremities Status: Acute Plan Plan of Care continue PT analgesics prn continue miranda transfer to [facility] insurance approves start senna-s and miralax Comment Review of Relevant I have reviewed the following items magno (where applicable) has been applied. Medications Current Medications Dexamethasone Sodium Phosphate (Decadron) 4 mg 1X ONCE IV Last administered on 12/27/18at 05:42; Start 12/27/18 at 05:30; Stop 12/27/18 at 05:31; Status DC Hydromorphone HCl (Dilaudid) 0.5 mg 1X ONCE IV Last administered on 12/27/18at 05:52; Start 12/27/18 at 06:00; Stop 12/27/18 at 06:01; Status DC Hydromorphone HCl (Dilaudid) 1 mg 1X ONCE IV Last administered on 12/27/18at 07:09; Start 12/27/18 at 07:30; Stop 12/27/18 at 07:31; Status DC Morphine Sulfate (Morphine Sulfate) 4 mg PRN Q2HR PRN IV PAIN Last administered on 12/27/18at 10:18; Start 12/27/18 at 09:30; Stop 12/27/18 at 10:18; Status DC Amlodipine Besylate (Norvasc) 10 mg DAILY PO Last administered on 12/28/18at 09:38; Start 12/27/18 at 12:00; Stop 12/28/18 at 10:34; Status DC Losartan Potassium (Cozaar) 50 mg DAILY PO ; Start 12/27/18 at 12:00; Stop 12/29/18 at 09:49; Status DC Acetaminophen (Tylenol) 650 mg PRN Q6HRS PRN PO MILD PAIN / TEMP; Start 12/27/18 at 11:00 Acetaminophen/ Hydrocodone Bitart (Lortab 5/325) 1 tab PRN Q4HRS PRN PO MODERATE PAIN; Start 12/27/18 at 11:00 Acetaminophen/ Hydrocodone Bitart (Lortab 10/325) 1 tab PRN Q4HRS PRN PO SEVERE PAIN Last administered on 12/29/18at 09:36; Start 12/27/18 at 11:00 Morphine Sulfate (Morphine Sulfate) 2 mg PRN Q4HRS PRN IV MILD-MOD PAIN Last ad ministered on 12/27/18at 19:59; Start 12/27/18 at 11:00 Magnesium Hydroxide (Milk Of Magnesia) 2,400 mg PRN DAILY PRN PO CONSTIPATION; Start 12/27/18 at 11:00 Ondansetron HCl (Zofran) 4 mg PRN Q6HRS PRN IV NAUSEA/VOMITING; Start 12/27/18 at 12:30; Stop 12/28/18 at 12:29; Status DC Fentanyl Citrate (Fentanyl 2ml Vial) 25 mcg PRN Q5MIN PRN IV MILD PAIN 1-3 Last administered on 12/27/18at 17:56; Start 12/27/18 at 12:30; Stop 12/28/18 at 00:09; Status DC Fentanyl Citrate (Fentanyl 2ml Vial) 50 mcg PRN Q5MIN PRN IV MODERATE TO SEVERE PAIN; Start 12/27/18 at 12:30; Stop 12/28/18 at 00:09; Status DC Morphine Sulfate (Morphine Sulfate) 1 mg PRN Q10MIN PRN IV SEVERE PAIN 7-10; Start 12/27/18 at 12:30; Stop 12/28/18 at 00:09; Status DC Ringer's Solution 1,000 ml @ 30 mls/hr Q24H IV ; Start 12/27/18 at 12:26; Stop 12/28/18 at 00:09; Status DC Hydromorphone HCl (Dilaudid) 0.5 mg PRN Q10MIN PRN IV SEV PAIN, Second choice; Start 12/27/18 at 12:30; Stop 12/28/18 at 12:29; Status DC Prochlorperazine Edisylate (Compazine) 5 mg PACU PRN PRN IV NAUSEA, MRX1; Start 12/27/18 at 12:30; Stop 12/28/18 at 12:29; Status DC Propofol 20 ml @ As Directed STK-MED ONCE IV ; Start 12/27/18 at 12:34; Stop 12/27/18 at 12:35; Status DC Dexamethasone Sodium Phosphate (Decadron) 20 mg STK-MED ONCE .ROUTE ; Start 12/27/18 at 12:34; Stop 12/27/18 at 12:35; Status DC Lidocaine HCl (Lidocaine Pf 2% Vial) 5 ml STK-MED ONCE .ROUTE ; Start 12/27/18 at 12:34; Stop 12/27/18 at 12:35; Status DC Ondansetron HCl (Zofran) 4 mg STK-MED ONCE .ROUTE ; Start 12/27/18 at 12:34; Stop 12/27/18 at 12:35; Status DC Propofol 50 ml @ As Directed STK-MED ONCE IV ; Start 12/27/18 at 12:34; Stop 12/27/18 at 12:35; Status DC Rocuronium [place] (Zemuron) 50 mg STK-MED ONCE .ROUTE ; Start 12/27/18 at 12:34; Stop 12/27/18 at 12:35; Status DC Remifentanil HCl (Ultiva) 2 mg STK-MED ONCE IV ; Start 12/27/18 at 12:35; Stop 12/27/18 at 12:35; Status DC Bacitracin 45718 unit/Sodium Chloride 1,000 ml @ 1,000 mls/hr 1X ONCE IRR Last administered on 12/27/18at 15:54; Start 12/27/18 at 13:00; Stop 12/27/18 at 13:59; Status DC Bupivacaine HCl/ Epinephrine Bitart (Sensorcain-Epi 0.5%-1:826082 Mpf) 30 ml 1X ONCE INJ Last administered on 12/27/18at 18:09; Start 12/27/18 at 13:00; Stop 12/27/18 at 13:01; Status DC Phenylephrine HCl (Vin-Synephrine Inj) 10 mg STK-MED ONCE .ROUTE ; Start 12/27/18 at 12:46; Stop 12/27/18 at 12:46; Status DC Gelatin (Gelfoam Size 100) 1 each STK-MED ONCE .ROUTE Last administered on 12/27/18at 15:52; Start 12/27/18 at 12:46; Stop 12/27/18 at 12:47; Status DC Ketorolac Tromethamine (Toradol Im) 60 mg STK-MED ONCE .ROUTE Last administered on 12/27/18at 15:52; Start 12/27/18 at 12:46; Stop 12/27/18 at 12:47; Status DC Thrombin 20,000 unit STK-MED ONCE TP Last administered on 12/27/18at 15:52; Start 12/27/18 at 12:46; Stop 12/27/18 at 12:47; Status DC Cefazolin Sodium/ Dextrose 50 ml @ 100 mls/hr 1X ONCE IV Last administered on 12/27/18at 14:53; Start 12/27/18 at 13:30; Stop 12/27/18 at 13:59; Status DC Glycopyrrolate (Robinul) 1 mg STK-MED ONCE .ROUTE ; Start 12/27/18 at 13:58; Stop 12/27/18 at 13:58; Status DC Propofol 50 ml @ As Directed STK-MED ONCE IV ; Start 12/27/18 at 14:56; Stop 12/27/18 at 14:56; Status DC Cefazolin Sodium (Ancef) 1 gm STK-MED ONCE .ROUTE ; Start 12/27/18 at 14:59; Stop 12/27/18 at 15:00; Status DC Acetaminophen (Tylenol) 650 mg PRN Q6HRS PRN PO MILD PAIN / TEMP; Start 12/27/18 at 15:15; Status UNV Al Hydroxide/Mg Hydroxide (Mylanta Plus Xs) 30 ml PRN Q3HRS PRN PO HEARTBURN / GAS; Start 12/27/18 at 15:15 Calcium Carbonate/ Glycine (Tums) 500 mg PRN Q3HRS PRN PO INDIGESTION; Start 12/27/18 at 15:15 Diphenhydramine HCl (Benadryl) 25 mg PRN Q6HRS PRN PO ITCHING; Start 12/27/18 at 15:15 Naloxone HCl (Narcan) 0.1 mg PRN Q2MIN PRN IV ADMIN; Start 12/27/18 at 15:15 Sodium Chloride (Normal Saline Flush) 3 ml QSHIFT PRN IV AFTER MEDS AND BLOOD DRAWS; Start 12/27/18 at 15:15 Docusate Sodium (Colace) 100 mg BID PO Last administered on 12/29/18at 09:36; Start 12/27/18 at 21:00 Magnesium Hydroxide (Milk Of Magnesia) 2,400 mg PRN Q12HR PRN PO CONSTIPATION; Start 12/27/18 at 15:15; Status UNV Fentanyl Citrate (Fentanyl 2ml Vial) 50 mcg PRN Q2HR PRN IV SEVERE PAIN Last administered on 12/28/18at 05:24; Start 12/27/18 at 15:15 Potassium Chloride/Dextrose/ Sod Cl 1,000 ml @ 75 mls/hr [id number] IV Last administered on 12/28/18at 06:25; Start 12/27/18 at 16:00; Stop 12/28/18 at 10:31; Status DC Desflurane (Suprane) 90 ml STK-MED ONCE IH ; Start 12/27/18 at 16:06; Stop 12/27/18 at 16:07; Status DC Neostigmine Methylsulfate (Neostigmine Methylsulfate) 5 mg STK-MED ONCE .ROUTE ; Start 12/27/18 at 16:53; Stop 12/27/18 at 16:53; Status DC Fentanyl Citrate (Fentanyl 2ml Vial) 100 mcg STK-MED ONCE .ROUTE ; Start 12/27/18 at 17:46; Stop 12/27/18 at 17:47; Status DC Amlodipine Besylate (Norvasc) 5 mg DAILY PO Last administered on 12/29/18at 09:36; Start 12/28/18 at 12:00 Bisacodyl (Dulcolax Tab) 10 mg DAILY PO Last administered on 12/29/18at 09:36; Start 12/28/18 at 16:00 Bisacodyl (Dulcolax Supp) 10 mg PRN DAILY PRN [place] CONSTIPATION; Start 12/28/18 at 16:00 Ascorbic Acid (Vitamin C) 500 mg DAILY PO Last administered on 12/29/18at 09:36; Start 12/29/18 at 09:00 Losartan Potassium (Cozaar) 50 mg QEVNG PO ; Start 12/29/18 at 18:00 Active Scripts Active Reported Tizanidine Hcl 4 Mg Tablet 2 Mg PO Q6HRS PRN Macrobid 100 Mg Capsule (Nitrofurantoin Monohyd/M-Cryst) 100 Mg Capsule 1 Cap PO BID Benicar (Olmesartan Medoxomil) 20 Mg Tablet 20 Mg PO DAILY Amlodipine Besylate 10 Mg Tablet 10 Mg PO DAILY Vitals/I & O Vital Sign - Last 24 Hours 12/28/18 12/28/18 12/28/18 12/28/18 11:00 12:46 14:07 15:00 Temp 98.3 98.6 98.3 98.6 Pulse 71 73 Resp 18 18 B/P (MAP) 128/63 (84) 140/74 (96) Pulse Ox 98 98 98 94 O2 Delivery Room Air Room Air Room Air O2 Flow Rate 8.0 12/28/18 12/28/18 12/28/18 12/28/18 16:28 19:00 20:00 20:48 Temp 98.4 98.4 Pulse 82 Resp 18 B/P (MAP) 130/65 (86) Pulse Ox 94 94 94 O2 Delivery Room Air Room Air Room Air 12/28/18 12/28/18 12/29/18 12/29/18 22:37 23:00 00:30 02:08 Temp 98.4 98.4 Pulse 88 Resp 16 B/P (MAP) 104/58 (73) Pulse Ox 94 94 94 94 O2 Delivery Room Air Room Air Room Air O2 Flow Rate 8.0 12/29/18 12/29/18 12/29/18 12/29/18 03:00 04:39 05:52 07:00 Temp 98.6 98.2 98.6 98.2 Pulse 76 68 Resp 16 16 B/P (MAP) 102/56 (71) 100/53 (69) Pulse Ox 91 91 91 100 O2 Delivery Room Air Room Air Room Air 12/29/18 12/29/18 12/29/18 12/29/18 07:35 09:36 09:36 09:36 Pulse 94 94 B/P (MAP) 137/61 137/61 O2 Delivery Room Air Room Air Intake and Output 12/28/18 12/28/18 12/29/18 14:59 22:59 06:59 Intake Total 1000 ml Output Total 800 ml 2200 ml 450 ml Balance -800 ml -1200 ml -450 ml RIVKA PFEIFFER MD Dec 29, 2018 10:16
[2018-12-29] MEDS ORDERED: SENN-22 PO (10:26)
[2018-12-29] MEDS ORDERED: ASCO500T2 PO (10:26)
[2018-12-29] MEDS ORDERED: POLY17PO28 PO (10:26)
[2018-12-29] MEDS ORDERED: HYDR-2769 PO (10:26)
[2018-12-29] MEDS ORDERED: AMLO5TAB10 PO (10:26)
[2018-12-29] MEDS ORDERED: ACET325T9 PO (10:26)
[2018-12-29] MEDS ORDERED: HYDR-2761 PO (10:26)
--- NOTE | 2018-12-29 10:27 | SNU/HH DC ---
DISCHARGE ORDERS DISCHARGE INFORMATION: DISCHARGE DATE: Dec 29, 2018 FINAL DIAGNOSIS Problems Medical Problems: (1) Back pain Status: Acute (2) Bilateral sciatica Status: Chronic (3) Hypertension Status: Chronic (4) Spinal stenosis at L4-L5 level Status: Acute (5) Urinary incontinence Status: Acute (6) Weakness of both lower extremities Status: Acute CONDITION ON DISCHARGE: Stable CODE STATUS: Code Status: Full POST DISCHARGE ORDERS: ACTIVITY ORDERS: Activity as tolerated WEIGHT BEARING STATUS: As tolerated DIET AFTER DISCHARGE: Regular FOLLOW-UP: PHYSICIAN FOLLOW-UP: dr. pfieffer at [facility] TREATMENT/EQUIPMENT ORDERS: ADAPTIVE EQUIPMENT NEEDED: None Physical Therapy For: Evalulation/Treatment Occupational Therapy For: Evaluation/Treatment DISCHARGE MEDICATIONS: Home Meds Active Scripts Ascorbic Acid (VITAMIN C) 500 Mg Tablet, 500 MG PO DAILY for vitamin, #30 TAB Prov:RIVKA PFEIFFER MD 12/29/18 Sennosides/Docusate Sodium (SENNA-TIME S TABLET) 1 Each Tablet, 2 TAB PO QHS for constipation, #30 TAB Prov:RIVKA PFEIFFER MD 12/29/18 Polyethylene Glycol 3350 (POLYETHYLENE GLYCOL 3350) 17 Gm Powd.pack, 17 GM PO DAILY for constipation, #30 PKT Prov:RIVKA PFEIFFER MD 12/29/18 Acetaminophen (TYLENOL) 325 Mg Tablet, 650 MG PO PRN Q6HRS PRN for MILD PAIN / TEMP, #30 TAB Prov:RIVKA PFEIFFER MD 12/29/18 Hydrocodone Bit/Acetaminophen (HYDROCODONE-APAP 5-325 ) 1 Tab Tablet, 1 TAB PO PRN Q4HRS PRN for MODERATE PAIN, #15 TAB Prov:RIVKA PFEIFFER MD 12/29/18 Hydrocodone Bit/Acetaminophen (HYDROCODONE-APAP 10-325 ) 1 Tab Tablet, 1 TAB PO PRN Q4HRS PRN for SEVERE PAIN, #15 TAB Prov:RIVKA PFEIFFER MD 12/29/18 Amlodipine Besylate (AMLODIPINE BESYLATE) 5 Mg Tablet, 5 MG PO DAILY for HTN for 30 Days, #30 TAB Prov:RIVKA FPEIFFER MD 12/29/18 Reported Medications Tizanidine Hcl (TIZANIDINE HCL) 4 Mg Tablet, 2 MG PO Q6HRS PRN for MUSCLE SPASMS, TAB 12/27/18 Nitrofurantoin Monohyd/M-Cryst (MACROBID 100 MG CAPSULE) 100 Mg Capsule, 1 CAP PO BID for UTI, #10 CAP 12/27/18 Olmesartan Medoxomil (BENICAR) 20 Mg Tablet, 20 MG PO DAILY for HYPERTENSION, TAB 12/27/18 Amlodipine Besylate (AMLODIPINE BESYLATE) 10 Mg Tablet, 10 MG PO DAILY for HTN, TAB 12/27/18 RIVKA PFEIFFER MD Dec 29, 2018 10:27
--- NOTE | 2018-12-29 10:27 | RAD ---
EXAM: Single intraoperative lateral view of the lower lumbar spine DATE: 12/27/2018 3:16 PM INDICATION: Lumbar laminectomy COMPARISON: No Prior FINDINGS/ IMPRESSION: 1 very limited intraoperative fluoroscopic views of the lateral lumbosacral junction submitted from the OR. Exam shows marker overlying the superior endplate of L5. . Note, this does not constitute a diagnostic quality exam. Please see operative report for full details. Electronically signed by: Silvano Rowell MD (12/29/2018 10:23 AM) [facility]
--- NOTE | 2018-12-29 10:28 | PDOC ---
SUBJECTIVE Subjective Pt still reports LE numbness and tingling. Feels well otherwise OBJECTIVE Objective Physical Exam Pleasant, Alert, NAD Unlabored breathing Abdomen soft, nondistended, nontender Miranda draining clear yellow urine Vital Signs Vital Signs Date Time Temp Pulse Resp B/P (MAP) Pulse Ox O2 Delivery O2 Flow Rate FiO2 12/29/18 09:36 94 137/61 12/29/18 09:36 94 137/61 12/29/18 09:36 Room Air 12/29/18 07:35 Room Air 12/29/18 07:00 98.2 68 16 100/53 (69) 100 Room Air 98.2 12/29/18 05:52 91 Room Air 12/29/18 04:39 91 Room Air 12/29/18 03:00 98.6 76 16 102/56 (71) 91 98.6 12/29/18 02:08 94 Room Air 12/29/18 00:30 94 Room Air 12/28/18 23:00 98.4 88 16 104/58 (73) 94 98.4 12/28/18 22:37 94 Room Air 8.0 12/28/18 20:48 94 Room Air 12/28/18 20:00 Room Air 12/28/18 19:00 98.4 82 18 130/65 (86) 94 98.4 12/28/18 16:28 94 Room Air 12/28/18 15:00 98.6 73 18 140/74 (96) 94 98.6 12/28/18 14:07 98 Room Air 8.0 12/28/18 12:46 98 Room Air 12/28/18 11:00 98.3 71 18 128/63 (84) 98 Room Air 98.3 I & O Intake and Output 12/29/18 06:59 Intake Total 1000 ml Output Total 3450 ml Balance -2450 ml Intake Oral 1000 ml Output Urine Total 3450 ml ASSESSMENT/PLAN Assessment/Plan Urinary retention 2/2 cauda equina syndrome D/w Dr. Reilly - voiding trial when more ambulatory and return of bladder sensation Discussed with patient if failing voiding trial then either replacing miranda or doing intermittent self cath LIVIA VALDIVIA Dec 29, 2018 10:28
--- NOTE | 2018-12-29 10:33 | PDOC ---
Provider Note Provider Note discharge summary dictated # [id number] RIVKA PFEIFFER MD Dec 29, 2018 10:32
--- NOTE | 2018-12-29 10:51 | PDOC ---
PROGRESS NOTES Subjective Subjective POD #2 improving sensation in lower extremities and feet, legs feel stronger back/ incisional pain Objective Objective Vital Signs Date Time Temp Pulse Resp B/P (MAP) Pulse Ox O2 Delivery O2 Flow Rate FiO2 12/29/18 09:36 94 137/61 12/29/18 09:36 Room Air 12/29/18 07:00 98.2 16 100 98.2 12/28/18 22:37 8.0 Intake and Output 12/29/18 06:59 Intake Total 1000 ml Output Total 3450 ml Balance -2450 ml Intake Oral 1000 ml Output Urine Total 3450 ml Physical Exam General: Alert, Oriented X3, Cooperative, No acute distress MUSCULOSKELETAL: Other (BROCK) Neuro: Normal speech Skin: Other (dressing dry and intact) Assessment Assessment Problems Medical Problems: (1) Back pain Status: Acute (2) Bilateral sciatica Status: Chronic (3) Hypertension Status: Chronic (4) Spinal stenosis at L4-L5 level Status: Acute (5) Urinary incontinence Status: Acute (6) Weakness of both lower extremities Status: Acute Plan Plan of Care encouraged increased activity as tolerated will need rehab will follow up with me in 2 weeks after DC d/w daughter Comment Review of Relevant I have reviewed the following items magno (where applicable) has been applied. Medications Current Medications Dexamethasone Sodium Phosphate (Decadron) 4 mg 1X ONCE IV Last administered on 12/27/18at 05:42; Start 12/27/18 at 05:30; Stop 12/27/18 at 05:31; Status DC Hydromorphone HCl (Dilaudid) 0.5 mg 1X ONCE IV Last administered on 12/27/18at 05:52; Start 12/27/18 at 06:00; Stop 12/27/18 at 06:01; Status DC Hydromorphone HCl (Dilaudid) 1 mg 1X ONCE IV Last administered on 12/27/18at 07:09; Start 12/27/18 at 07:30; Stop 12/27/18 at 07:31; Status DC Morphine Sulfate (Morphine Sulfate) 4 mg PRN Q2HR PRN IV PAIN Last administered on 12/27/18at 10:18; Start 12/27/18 at 09:30; Stop 12/27/18 at 10:18; Status DC Amlodipine Besylate (Norvasc) 10 mg DAILY PO Last administered on 12/28/18at 09:38; Start 12/27/18 at 12:00; Stop 12/28/18 at 10:34; Status DC Losartan Potassium (Cozaar) 50 mg DAILY PO ; Start 12/27/18 at 12:00; Stop 12/29/18 at 09:49; Status DC Acetaminophen (Tylenol) 650 mg PRN Q6HRS PRN PO MILD PAIN / TEMP; Start 12/27/18 at 11:00 Acetaminophen/ Hydrocodone Bitart (Lortab 5/325) 1 tab PRN Q4HRS PRN PO MODERATE PAIN; Start 12/27/18 at 11:00 Acetaminophen/ Hydrocodone Bitart (Lortab 10/325) 1 tab PRN Q4HRS PRN PO SEVERE PAIN Last administered on 12/29/18at 09:36; Start 12/27/18 at 11:00 Morphine Sulfate (Morphine Sulfate) 2 mg PRN Q4HRS PRN IV MILD-MOD PAIN Last administered on 12/27/18at 19:59; Start 12/27/18 at 11:00 Magnesium Hydroxide (Milk Of Magnesia) 2,400 mg PRN DAILY PRN PO CONSTIPATION; Start 12/27/18 at 11:00 Ondansetron HCl (Zofran) 4 mg PRN Q6HRS PRN IV NAUSEA/VOMITING; Start 12/27/18 at 12:30; Stop 12/28/18 at 12:29; Status DC Fentanyl Citrate (Fentanyl 2ml Vial) 25 mcg PRN Q5MIN PRN IV MILD PAIN 1-3 Last administered on 12/27/18at 17:56; Start 12/27/18 at 12:30; Stop 12/28/18 at 00:09; Status DC Fentanyl Citrate (Fentanyl 2ml Vial) 50 mcg PRN Q5MIN PRN IV MODERATE TO SEVERE PAIN; Start 12/27/18 at 12:30; Stop 12/28/18 at 00:09; Status DC Morphine Sulfate (Morphine Sulfate) 1 mg PRN Q10MIN PRN IV SEVERE PAIN 7-10; Start 12/27/18 at 12:30; Stop 12/28/18 at 00:09; Status DC Ringer's Solution 1,000 ml @ 30 mls/hr Q24H IV ; Start 12/27/18 at 12:26; Stop 12/28/18 at 00:09; Status DC Hydromorphone HCl (Dilaudid) 0.5 mg PRN Q10MIN PRN IV SEV PAIN, Second choice; Start 12/27/18 at 12:30; Stop 12/28/18 at 12:29; Status DC Prochlorperazine Edisylate (Compazine) 5 mg PACU PRN PRN IV NAUSEA, MRX1; Start 12/27/18 at 12:30; Stop 12/28/18 at 12:29; Status DC Propofol 20 ml @ As Directed STK-MED ONCE IV ; Start 12/27/18 at 12:34; Stop 12/27/18 at 12:35; Status DC Dexamethasone Sodium Phosphate (Decadron) 20 mg STK-MED ONCE .ROUTE ; Start 12/27/18 at 12:34; Stop 12/27/18 at 12:35; Status DC Lidocaine HCl (Lidocaine Pf 2% Vial) 5 ml STK-MED ONCE .ROUTE ; Start 12/27/18 at 12:34; Stop 12/27/18 at 12:35; Status DC Ondansetron HCl (Zofran) 4 mg STK-MED ONCE .ROUTE ; Start 12/27/18 at 12:34; Stop 12/27/18 at 12:35; Status DC Propofol 50 ml @ As Directed STK-MED ONCE IV ; Start 12/27/18 at 12:34; Stop 12/27/18 at 12:35; Status DC Rocuronium [place] (Zemuron) 50 mg STK-MED ONCE .ROUTE ; Start 12/27/18 at 12:34; Stop 12/27/18 at 12:35; Status DC Remifentanil HCl (Ultiva) 2 mg STK-MED ONCE IV ; Start 12/27/18 at 12:35; Stop 12/27/18 at 12:35; Status DC Bacitracin 27342 unit/Sodium Chloride 1,000 ml @ 1,000 mls/hr 1X ONCE IRR Last administered on 12/27/18at 15:54; Start 12/27/18 at 13:00; Stop 12/27/18 at 13:59; Status DC Bupivacaine HCl/ Epinephrine Bitart (Sensorcain-Epi 0.5%-1:430638 Mpf) 30 ml 1X ONCE INJ Last administered on 12/27/18at 18:09; Start 12/27/18 at 13:00; Stop 12/27/18 at 13:01; Status DC Phenylephrine HCl (Vin-Synephrine Inj) 10 mg STK-MED ONCE .ROUTE ; Start 12/27/18 at 12:46; Stop 12/27/18 at 12:46; Status DC Gelatin (Gelfoam Size 100) 1 each STK-MED ONCE .ROUTE Last administered on 12/27/18at 15:52; Start 12/27/18 at 12:46; Stop 12/27/18 at 12:47; Status DC Ketorolac Tromethamine (Toradol Im) 60 mg STK-MED ONCE .ROUTE Last administered on 12/27/18at 15:52; Start 12/27/18 at 12:46; Stop 12/27/18 at 12:47; Status DC Thrombin 20,000 unit STK-MED ONCE TP Last administered on 12/27/18at 15:52; Start 12/27/18 at 12:46; Stop 12/27/18 at 12:47; Status DC Cefazolin Sodium/ Dextrose 50 ml @ 100 mls/hr 1X ONCE IV Last administered on 12/27/18at 14:53; Start 12/27/18 at 13:30; Stop 12/27/18 at 13:59; Status DC Glycopyrrolate (Robinul) 1 mg STK-MED ONCE .ROUTE ; Start 12/27/18 at 13:58; Stop 12/27/18 at 13:58; Status DC Propofol 50 ml @ As Directed STK-MED ONCE IV ; Start 12/27/18 at 14:56; Stop 12/27/18 at 14:56; Status DC Cefazolin Sodium (Ancef) 1 gm STK-MED ONCE .ROUTE ; Start 12/27/18 at 14:59; Stop 12/27/18 at 15:00; Status DC Acetaminophen (Tylenol) 650 mg PRN Q6HRS PRN PO MILD PAIN / TEMP; Start 12/27/18 at 15:15; Status UNV Al Hydroxide/Mg Hydroxide (Mylanta Plus Xs) 30 ml PRN Q3HRS PRN PO HEARTBURN / GAS; Start 12/27/18 at 15:15 Calcium Carbonate/ Glycine (Tums) 500 mg PRN Q3HRS PRN PO INDIGESTION; Start 12/27/18 at 15:15 Diphenhydramine HCl (Benadryl) 25 mg PRN Q6HRS PRN PO ITCHING; Start 12/27/18 at 15:15 Naloxone HCl (Narcan) 0.1 mg PRN Q2MIN PRN IV ADMIN; Start 12/27/18 at 15:15 Sodium Chloride (Normal Saline Flush) 3 ml QSHIFT PRN IV AFTER MEDS AND BLOOD DRAWS; Start 12/27/18 at 15:15 Docusate Sodium (Colace) 100 mg BID PO Last administered on 12/29/18at 09:36; Start 12/27/18 at 21:00 Magnesium Hydroxide (Milk Of Magnesia) 2,400 mg PRN Q12HR PRN PO CONSTIPATION; Start 12/27/18 at 15:15; Status UNV Fentanyl Citrate (Fentanyl 2ml Vial) 50 mcg PRN Q2HR PRN IV SEVERE PAIN Last administered on 12/28/18at 05:24; Start 12/27/18 at 15:15 Potassium Chloride/Dextrose/ Sod Cl 1,000 ml @ 75 mls/hr [id number] IV Last administered on 12/28/18at 06:25; Start 12/27/18 at 16:00; Stop 12/28/18 at 10 :31; Status DC Desflurane (Suprane) 90 ml STK-MED ONCE IH ; Start 12/27/18 at 16:06; Stop 12/27/18 at 16:07; Status DC Neostigmine Methylsulfate (Neostigmine Methylsulfate) 5 mg STK-MED ONCE .ROUTE ; Start 12/27/18 at 16:53; Stop 12/27/18 at 16:53; Status DC Fentanyl Citrate (Fentanyl 2ml Vial) 100 mcg STK-MED ONCE .ROUTE ; Start 12/27/18 at 17:46; Stop 12/27/18 at 17:47; Status DC Amlodipine Besylate (Norvasc) 5 mg DAILY PO Last administered on 12/29/18at 09:36; Start 12/28/18 at 12:00 Bisacodyl (Dulcolax Tab) 10 mg DAILY PO Last administered on 12/29/18at 09:36; Start 12/28/18 at 16:00 Bisacodyl (Dulcolax Supp) 10 mg PRN DAILY PRN [place] CONSTIPATION; Start 12/28/18 at 16:00 Ascorbic Acid (Vitamin C) 500 mg DAILY PO Last administered on 12/29/18at 09:36; Start 12/29/18 at 09:00 Losartan Potassium (Cozaar) 50 mg QEVNG PO ; Start 12/29/18 at 18:00 Polyethylene Glycol (miraLAX PACKET) 17 gm DAILY PO ; Start 12/29/18 at 11:00 Senna/Docusate Sodium (Senna Plus) 2 tab QHS PO ; Start 12/29/18 at 21:00 Active Scripts Active Vitamin C (Ascorbic Acid) 500 Mg Tablet 500 Mg PO DAILY Senna-Time S Tablet (Sennosides/Docusate Sodium) 1 Each Tablet 2 Tab PO QHS Polyethylene Glycol 3350 17 Gm Powd.pack 17 Gm PO DAILY Tylenol (Acetaminophen) 325 Mg Tablet 650 Mg PO PRN Q6HRS PRN Hydrocodone-Apap 5-325 (Hydrocodone Bit/Acetaminophen) 1 Tab Tablet 1 Tab PO PRN Q4HRS PRN Hydrocodone-Apap 10-325 (Hydrocodone Bit/Acetaminophen) 1 Tab Tablet 1 Tab PO PRN Q4HRS PRN Amlodipine Besylate 5 Mg Tablet 5 Mg PO DAILY 30 Days Reported Benicar (Olmesartan Medoxomil) 20 Mg Tablet 20 Mg PO DAILY Vitals/I & O Vital Sign - Last 24 Hours 12/28/18 12/28/18 12/28/18 12/28/18 11:00 12:46 14:07 15:00 Temp 98.3 98.6 98.3 98.6 Pulse 71 73 Resp 18 18 B/P (MAP) 128/63 (84) 140/74 (96) Pulse Ox 98 98 98 94 O2 Delivery Room Air Room Air Room Air O2 Flow Rate 8.0 12/28/18 12/28/18 12/28/18 12/28/18 16:28 19:00 20:00 20:48 Temp 98.4 98.4 Pulse 82 Resp 18 B/P (MAP) 130/65 (86) Pulse Ox 94 94 94 O2 Delivery Room Air Room Air Room Air 12/28/18 12/28/18 12/29/18 12/29/18 22:37 23:00 00:30 02:08 Temp 98.4 98.4 Pulse 88 Resp 16 B/P (MAP) 104/58 (73) Pulse Ox 94 94 94 94 O2 Delivery Room Air Room Air Room Air O2 Flow Rate 8.0 12/29/18 12/29/18 12/29/18 12/29/18 03:00 04:39 05:52 07:00 Temp 98.6 98.2 98.6 98.2 Pulse 76 68 Resp 16 16 B/P (MAP) 102/56 (71) 100/53 (69) Pulse Ox 91 91 91 100 O2 Delivery Room Air Room Air Room Air 12/29/18 12/29/18 12/29/18 12/29/18 07:35 09:36 09:36 09:36 Pulse 94 94 B/P (MAP) 137/61 137/61 O2 Delivery Room Air Room Air Intake and Output 12/28/18 12/28/18 12/29/18 14:59 22:59 06:59 Intake Total 1000 ml Output Total 800 ml 2200 ml 450 ml Balance -800 ml -1200 ml -450 ml KRISH TORRES MD Dec 29, 2018 10:51
[2018-12-29] MEDS: POLYETHYLENE GLYCOL 3350 17 GM PACKET. PO SCH ×2 (10:57→12:17)
[2018-12-29 11:00] VITALS: BP 115/61
--- NOTE | 2018-12-29 13:12 | NUR ---
SS following up with discharge planning. Pt accepted at [facility], ; fax [phone]. SS phoned and faxed discharge orders to [facility]. Pt will discharge today and go to [facility] at 1830. [facility] to provide transportation. Pt, pt's RN, and pt's family notified.
[2018-12-29 15:00] VITALS: BP 132/58
--- NOTE | 2018-12-29 15:47 | NUR ---
Back incision cleaned with chloraprep, new dressing applied.
--- NOTE | 2018-12-29 16:15 | NUR ---
Spoke with with Ros Crowe with urology. Notified of DICKSON novoa today. F/U with urology only if voiding trial is unsuccessful.
--- NOTE | 2018-12-29 16:30 | NUR ---
Attempt for report made to [facility], stated the RN was at lunch and would return call for report.
[2018-12-29 17:30] VITALS: BP 126/61
[2018-12-29] MEDS ORDERED: LOSARTAN POTASSIUM 50 MG TABLET. PO SCH (18:00)
--- NOTE | 2018-12-29 18:30 | NUR ---
Pt. discharged to [facility] via per transportation service. Back Drsg CDI.
[2018-12-29] MEDS ORDERED: SENNOSIDES/DOCUSATE 8.6/50MG TABLET. PO SCH (21:00)
--- NOTE | 2018-12-29 21:21 | DS ---
DATE OF DISCHARGE: 12/29/2018 DATE OF ANTICIPATED DISMISSAL: 12/29/2018 CONSULTANTS: Dr. Reilly, Dr. Mcdonnell, and Dr. Sanders. PROCEDURE: Lumbar laminectomy with L4-L5 microdiskectomy. FINAL DIAGNOSES: 1. Severe L4-L5 lumbar spinal stenosis with cauda equina syndrome. 2. Urinary retention secondary to cauda equina syndrome requiring a Fang catheter. 3. Mobility and self-care deficits secondary to lumbar spinal stenosis and cauda equina syndrome. 4. Hypertension. HOSPITAL COURSE: The patient is a 73-year-old -[place] female with history of hypertension, noted the onset of some pain in both lower extremities around 10:00 in the morning, the day before admission, took 5 ibuprofen and went to the [employer] for shopping. She continued to have pain down both her legs and some numbness in her legs and numbness in the perineal area and numbness in both lower extremities. She has some difficulty urinating, could not pass urine and so sought help at [facility] Emergency Room where she was found to have urinary tract infection, sent home on nitrofurantoin p.r.n., tizanidine and then eventually went to the [facility] Emergency Room because of symptoms worsened and an MRI of the lumbar spine showed severe L4-L5 spinal stenosis. She underwent emergent surgery by Dr. Mcdonnell and had a lumbar laminectomy with an L4L5 microdiskectomy. She was seen by Urology. A Fang catheter had been placed and they recommended leaving it in and eventually having a voiding trial. It was felt the urine retention was secondary to cauda equina syndrome. She had mobility and self-care deficits secondary to lumbar spinal stenosis. She has some postop back pain. Her amlodipine was decreased from 10 to 5 mg every day and her Benicar was substituted with losartan as the Benicar is not on formulary. The patient received physical therapy and occupational therapy and had significant mobility and self-care deficits seen in consultation by Dr. Reilly for physical rehabilitation. The physical therapist recommended a physical rehabilitation facility. The patient since screened for [facility] and awaiting for insurance approval to be transferred later today. She will be dismissed on amlodipine 5 mg every day, Benicar 20 mg every day, [place] 5/325 one every 4 hours p.r.n., [place] 10/325 one every 4 hours p.r.n. and MiraLax 17 grams daily and Senokot-S 2 tablets at bedtime, vitamin C 500 mg every day, and Tylenol 650 mg every 6 hours p.r.n. RIVKA PFEIFFER MD DR: Laine JOB#: [id number] / [id number]
--- NOTE | 2018-12-30 15:07 | PATHOLOGY ---
[facility] Accession Number: [id number] . 01 Material submitted: . vertebral column - LUMBAR DISC AND DECOMPRESSION . 01 Clinical history: . Severe lumbar spinal stenosis, please refer to requisition for additional information . 02 Diagnosis: "Lumbar disc and decompression", removal: - Fragments of unremarkable bone. - Fragments of hyalin cartilage with focal degenerative changes. (SKM:doreen; 12/30/2018) MBR 12/30/2018 1319 Local . 02 Electronically signed: . Gerson Dent MD, Pathologist NPI- [id number] . 01 Gross description: . Received in formalin labeled "Kelley Stewart, lumbar disc and decompression," are several pieces of glistening, fibrous tissue measuring 5.4 x 4.6 x 1.3 cm in aggregate dimensions, containing small fragments of possible bone. The tissue is submitted representatively in cassette A1, following decalcification. (TSD; 12/28/2018) TOB/TOB 12/28/2018 1718 Local . 02 Pathologist provided ICD-10: M51.36 . 02 CPT . 746342, [id number] Specimen Comment: A courtesy copy of this report has been sent to Specimen Comment: [phone], , . Specimen Comment: Report sent to ,DR PFEIFFER / DR CAMPOS Performed at: 01 [facility] [address], [place] [id number] MD Dewyane Chadwick MD Phone: [phone] Performed at: 02 [facility] [address], [place] [id number] MD Ge Waller MD Phone: [phone]
== END 2018-12-29 18:30 | DRG 519 ==
LOC: ER 04:45 → 4 NORTH 09:01
PROVIDERS: ADMIT Internal Medicine; ATTEND Internal Medicine
PROC: 01NB0ZZ Release Lumbar Nerve, Open Approach (ICD-10-PCS; 2018-12-27)
PROC: 00BY0ZZ Excision of Lumbar Spinal Cord, Open Approach (ICD-10-PCS; 2018-12-27)
PROC: 0SB20ZZ Excision of Lumbar Vertebral Disc, Open Approach (ICD-10-PCS; principal; 2018-12-27 13:00)
DX: M48.061 Spinal stenosis, lumbar region without neurogenic claudication (principal); K59.2 Neurogenic bowel, not elsewhere classified; G83.4 Cauda equina syndrome; M51.16 Intervertebral disc disorders with radiculopathy, lumbar region; M47.26 Other spondylosis with radiculopathy, lumbar region; M51.36 Other intervertebral disc degeneration, lumbar region; E88.2 Lipomatosis, not elsewhere classified; M62.838 Other muscle spasm; E78.00 Pure hypercholesterolemia, unspecified; G62.9 Polyneuropathy, unspecified; I10 Essential (primary) hypertension; R33.8 Other retention of urine; Z91.040 Latex allergy status; Z90.49 Acquired absence of other specified parts of digestive tract
CPT/HCPCS: 36415; 51702; 71045; 72148; 76000; 80053; 81001; 85025; 93005; 96374; 96375; 96376; A7015; J0690; J0696; J1100; J1170; J1885; J2001; J2270; J2405; J2704; J2710; J3010; J3490; 97116; 97530; 97535; 99285-25; G0378